=== PATIENT | female | born 1950 | race Caucasian/White ===

== ENCOUNTER 2017-10-02 11:10 | Emergency (ER) | payer MEDICARE, BC ==
--- NOTE | 2017-10-02 11:29 | EDM.PDOC ---
ED HPI GENERAL MEDICAL PROBLEM - General Chief Complaint: ENT Problem Stated Complaint: RIGHT EARACHE Time Seen by Provider: 10/02/17 11:24 Source of Information: Reports: Patient History Limitations: Reports: No Limitations - History of Present Illness INITIAL COMMENTS - FREE TEXT/NARRATIVE: HISTORY AND PHYSICAL: History of present illness: Sapphire is a 67-year-old female here for right ear plugged x 6 days. She states she got a chunk of wax out and then she went to the clinic in [place] and ear was flushed. She states that after this became more plugged. She was told to use [id number] Debrox this has not helped. She states she has about a quarter of her hearing in that ear now, denies any pain. She denies any fevers or chills. She states she is currently being treated for a sinus infection with clarithromycin. Review of systems: As per history of present illness and below otherwise all systems reviewed and negative. Past medical history: As per history of present illness and as reviewed below otherwise noncontributory. Surgical history: As per history of present illness and as reviewed below otherwise noncontributory. Social history: No reported history of drug or alcohol abuse. Family history: As per history of present illness and as reviewed below otherwise noncontributory. Physical exam: General: patient sitting comfortably in no acute distress HEENT: Right external ear canal is edematous with some otorrhea noted. TM is intact and without erythema or bulging. Atraumatic, normocephalic, pupils reactive, negative for conjunctival pallor or scleral icterus, mucous membranes moist, throat clear, neck supple Lungs: Clear to auscultation, breath sounds equal bilaterally Heart: S1S2, regular, negative for clicks, rubs, or overt murmurs Neuro: Awake, alert, oriented. Cranial nerves II through XII unremarkable. Cerebellum unremarkable. Motor and sensory unremarkable throughout. Exam nonfocal. Notes: Diagnostics: [] Therapeutics: Ciprodex Otic suspension Impression: Otitis externa Plan: #1 use drops as instructed #2 follow-up with ENT #3 return to ED as needed as discussed Definitive disposition and diagnosis as appropriate pending reevaluation and review of above. - Related Data Allergies Allergy/AdvReac Type Severity Reaction Status Date / Time amoxicillin [From Augmentin] Allergy Nausea and Verified 10/02/17 11:18 Vomiting chicken derived Allergy Hives Verified 06/01/14 08:23 clavulanic acid Allergy Nausea and Verified 10/02/17 11:18 [From Augmentin] Vomiting Home Meds: Home Meds Ciprofloxacin/Dexamethasone [Ciprodex Otic Susp] 1 drop OT BID #1 bottle [Rx] Clarithromycin [Biaxin] 500 mg PO BID 10/02/17 [History] ED ROS ENT - Review of Systems Review Of Systems: ROS reveals no pertinent complaints other than HPI. ED EXAM, ENT - Physical Exam Exam: See Below (See dictation) Course - Vital Signs Last Recorded V/S: Last Vital Signs Temp 36.5 C 10/02/17 11:19 Pulse 104 H 10/02/17 11:19 Resp 18 10/02/17 11:19 BP 141/89 H 10/02/17 11:19 Pulse Ox 94 L 10/02/17 11:19 Departure - Departure Time of Disposition: 11:28 Disposition: Home, Self-Care 01 Condition: Good Clinical Impression: Otitis externa - Discharge Information Prescriptions: Ciprofloxacin/Dexamethasone [Ciprodex Otic Susp] 1 drop OT BID #1 bottle Additional Instructions: The following information is given to patients seen in the emergency department who are being discharged to home. This information is to outline your options for follow-up care. We provide all patients seen in our emergency department with a follow-up referral. The need for follow-up, as well as the timing and circumstances, are variable depending upon the specifics of your emergency department visit. If you don't have a primary care physician on staff, we will provide you with a referral. We always advise you to contact your personal physician following an emergency department visit to inform them of the circumstance of the visit and for follow-up with them and/or the need for any referrals to a consulting specialist. The emergency department will also refer you to a specialist when appropriate. This referral assures that you have the opportunity for follow-up care with a specialist. All of these measure are taken in an effort to provide you with optimal care, which includes your follow-up. Under all circumstances we always encourage you to contact your private physician who remains a resource for coordinating your care. When calling for follow-up care, please make the office aware that this follow-up is from your recent emergency room visit. If for any reason you are refused follow-up, please contact the [facility] Emergency Department at and asked to speak to the emergency department charge nurse. [facility] Special[facility] - ENT [facility] [place] [id number] #1 use drops as instructed #2 follow-up with ENT #3 return to ED as needed as discussed
== END 2017-10-02 11:40 | disposition home or self-care (01) ==
LOC: MW.ED 11:10
DX: H60.91 Unspecified otitis externa, right ear (principal); Z88.1 Allergy status to other antibiotic agents; Z91.018 Allergy to other foods
CPT/HCPCS: 99282

== ENCOUNTER 2019-02-05 12:00 | Emergency (ER) | payer MEDICARE, BC ==
--- NOTE | 2019-02-05 12:26 | EDM.PDOC ---
ED HPI GENERAL MEDICAL PROBLEM - General Chief Complaint: ENT Problem Stated Complaint: sinus infection Time Seen by Provider: 02/05/19 12:23 Source of Information: Reports: Patient - History of Present Illness INITIAL COMMENTS - FREE TEXT/NARRATIVE: HISTORY AND PHYSICAL: History of present illness: []Patient presents with complaint of sinusitis she states she has developed this a couple of times a year over the last 4 years generally in July and January she has [place] sinus pain and pressure on the left no fever nausea vomiting chills sweats Patient has taken some amoxicillin left over from previous she is on of a 75 mg this usually resolves her symptoms Review of systems: As per history of present illness and below otherwise all systems reviewed and negative. Past medical history: As per history of present illness and as reviewed below otherwise noncontributory. Surgical history: As per history of present illness and as reviewed below otherwise noncontributory. Social history: No reported history of drug or alcohol abuse. Family history: As per history of present illness and as reviewed below otherwise noncontributory. Physical exam: HEENT: Atraumatic, normocephalic, pupils reactive, negative for conjunctival pallor or scleral icterus, mucous membranes moist, throat clear, neck supple, nontender, trachea midline. sinus tenderness left greater than right slight effusion in the left ear no otitis appreciated oropharynx is clear Lungs: Clear to auscultation, breath sounds equal bilaterally, chest nontender. Heart: S1S2, regular, negative for clicks, rubs, or JVD. Abdomen: Soft, nondistended, nontender. Negative for masses or hepatosplenomegaly. Negative for costovertebral tenderness. Pelvis: Stable nontender. Genitourinary: Deferred. Rectal: Deferred. Extremities: Atraumatic, negative for cords or calf pain. Neurovascular unremarkable. Neuro: Awake, alert, oriented. Cranial nerves II through XII unremarkable. Cerebellum unremarkable. Motor and sensory unremarkable throughout. Exam nonfocal. Diagnostics: [] [employer]: [] oxacillin Impression: [] sinusitis Definitive disposition and diagnosis as appropriate pending reevaluation and review of above. right facial Pain Score (Numeric/FACES): 8 - Related Data Allergies Allergy/AdvReac Type Severity Reaction Status Date / Time amoxicillin [From Augmentin] Allergy Nausea and Verified 02/05/19 12:13 Vomiting chicken derived Allergy Hives Verified 02/05/19 12:13 clavulanic acid Allergy Nausea and Verified 02/05/19 12:13 [From Augmentin] Vomiting Home Meds: Home Meds . 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) History: Reports: Other (See Below) Other Oncologic History: CLL - Infectious Disease History Infectious Disease History: Reports: Shingles - Past Surgical History GI Surgical History: Reports: Appendectomy, Cholecystectomy, EGD Female Surgical History: Reports: Section Social & Family History - Family History Family Medical History: Noncontributory - Tobacco Use Smoking Status *Q: Current Every Day Smoker Years of Tobacco use: 45 Packs/Tins Daily: 0.5 - Caffeine Use Caffeine Use: Reports: Coffee - Recreational Drug Use Recreational Drug Use: No ED ROS GENERAL - Review of Systems Review Of Systems: See Below ED EXAM, GENERAL - Physical Exam Exam: See Below Course - Vital Signs Last Recorded V/S: Last Vital Signs Temp 97.3 F 02/05/19 12:10 Pulse 93 02/05/19 12:10 Resp 18 02/05/19 12:10 BP 154/74 H 02/05/19 12:10 Pulse Ox 95 02/05/19 12:10 Departure - Departure Time of Disposition: 12:25 Disposition: Home, Self-Care 01 Condition: Good Clinical Impression: Sinusitis - Discharge Information Referrals: PCP,None [Primary Care Provider] - Additional Instructions: The following information is given to patients seen in the emergency department who are being discharged to home. This information is to outline your options for follow-up care. We provide all patients seen in our emergency department with a follow-up referral. The need for follow-up, as well as the timing and circumstances, are variable depending upon the specifics of your emergency department visit. If you don't have a primary care physician on staff, we will provide you with a referral. We always advise you to contact your personal physician following an emergency department visit to inform them of the circumstance of the visit and for follow-up with them and/or the need for any referrals to a consulting specialist. The emergency department will also refer you to a specialist when appropriate. This referral assures that you have the opportunity for follow-up care with a specialist. All of these measure are taken in an effort to provide you with optimal care, which includes your follow-up. Under all circumstances we always encourage you to contact your private physician who remains a resource for coordinating your care. When calling for follow-up care, please make the office aware that this follow-up is from your recent emergency room visit. If for any reason you are refused follow-up, please contact the [facility] emergency department at and asked to speak to the emergency department charge nurse.
== END 2019-02-05 12:36 | disposition home or self-care (01) ==
LOC: MW.ED 12:00
DX: J32.9 Chronic sinusitis, unspecified (principal); F17.210 Nicotine dependence, cigarettes, uncomplicated; Z88.0 Allergy status to penicillin; Z88.1 Allergy status to other antibiotic agents; Z91.018 Allergy to other foods
CPT/HCPCS: 99283

== ENCOUNTER 2020-09-04 08:01 | Emergency (ER) | payer MEDICARE, BC ==
--- NOTE | 2020-09-04 08:33 | EDM.PDOC ---
ED HPI GENERAL MEDICAL PROBLEM - General Chief Complaint: General Stated Complaint: RIGHT SIDE PAIN Time Seen by Provider: 09/04/20 08:23 Source of Information: Reports: Patient History Limitations: Reports: No Limitations - History of Present Illness INITIAL COMMENTS - FREE TEXT/NARRATIVE: Patient is a 70-year-old female with history of CLL who presents today for right-sided rib pain. Patient states that she was gardening yesterday when she bent over she felt a pop in her right side and since then has had pain with twisting turning and taking a deep breath. Patient denies any shortness of breath chest pain nausea vomiting licha pain decreased p.o. intake or other symptoms. Patient is a pain is an achy feeling, she taken Tylenol Motrin with the pain better. Patient denies any additional complaints. right ribs Pain Score (Numeric/FACES): 8 - Related Data Allergies Allergy/AdvReac Type Severity Reaction Status Date / Time chicken derived Allergy Hives Verified 09/04/20 08:17 clavulanic acid Allergy Nausea and Verified 09/04/20 08:17 [From Augmentin] Vomiting Home Meds: Home Meds . 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 (Cancer) History: Reports: Other (See Below) Other Oncologic History: CLL - Infectious Disease History Infectious Disease History: Reports: Shingles - Past Surgical History Other Respiratory Surgeries/Procedures: Emphysema GI Surgical History: Reports: Appendectomy, Cholecystectomy, EGD Female Surgical History: Reports: Section Social & Family History - Family History Family Medical History: No Pertinent Family History - Tobacco Use Packs/Tins Daily: 0.7 - Caffeine Use Caffeine Use: Reports: Coffee - Recreational Drug Use Recreational Drug Use: No ED ROS GENERAL - Review of Systems Review Of Systems: See Below Constitutional: Reports: No Symptoms HEENT: Reports: No Symptoms Respiratory: Reports: No Symptoms Cardiovascular: Reports: No Symptoms Endocrine: Reports: No Symptoms GI/Abdominal: Reports: No Symptoms : Reports: No Symptoms Musculoskeletal: Reports: No Symptoms Skin: Reports: No Symptoms Neurological: Reports: No Symptoms Psychiatric: Reports: No Symptoms Hematologic/Lymphatic: Reports: No Symptoms Immunologic: Reports: No Symptoms ED EXAM, GENERAL - Physical Exam Exam: See Below Exam Limited By: No Limitations General Appearance: Alert, WD/WN, No Apparent Distress Head: Atraumatic, Normocephalic Respiratory/Chest: No Respiratory Distress, Lungs Clear, Normal Breath Sounds. No: Chest Non-Tender Cardiovascular: Normal Peripheral Pulses, Regular Rate, Rhythm, No Edema GI/Abdominal: Normal Bowel Sounds, Soft, Non-Tender Back Exam: Normal Inspection, Full Range of Motion, NT Extremities: Normal Inspection, Normal Range of Motion Neurological: Alert, Oriented, CN II-XII Intact, Normal Cognition, Normal Gait Psychiatric: Normal Affect, Normal Mood Skin Exam: No Rash Course - Vital Signs Last Recorded V/S: Last Vital Signs Temp 96.6 F L 09/04/20 08:14 Pulse 93 09/04/20 08:14 Resp 16 09/04/20 08:14 BP 182/94 H 09/04/20 08:14 Pulse Ox 95 09/04/20 08:14 Departure - Departure Time of Disposition: 09:22 Disposition: Home, Self-Care 01 Condition: Good Clinical Impression: Right flank pain - Discharge Information *PRESCRIPTION DRUG MONITORING PROGRAM REVIEWED*: Not Applicable *COPY OF PRESCRIPTION DRUG MONITORING REPORT IN PATIENT VAIBHAV: Not Applicable Instructions: Flank Pain, Adult, [id number] Referrals: PCP,None [Primary Care Provider] - Forms: ED Department Discharge Additional Instructions: The following information is given to patients seen in the emergency department who are being discharged to home. This information is to outline your options for follow-up care. We provide all patients seen in our emergency department w ith a follow-up referral. The need for follow-up, as well as the timing and circumstances, are variable depending upon the specifics of your emergency department visit. If you don't have a primary care physician on staff, we will provide you with a referral. We always advise you to contact your personal physician following an emergency department visit to inform them of the circumstance of the visit and for follow-up with them and/or the need for any referrals to a consulting specialist. The emergency department will also refer you to a specialist when appropriate. This referral assures that you have the opportunity for follow-up care with a specialist. All of these measure are taken in an effort to provide you with optimal care, which includes your follow-up. Under all circumstances we always encourage you to contact your private physician who remains a resource for coordinating your care. When calling for follow-up care, please make the office aware that this follow-up is from your recent emergency room visit. If for any reason you are refused follow-up, please contact the [facility] Emergency Department at and asked to speak to the emergency department charge nurse. Please follow up with your primary care physician. If you do not have a primary care physician, see below: [facility] [address] [place] [id number] [facility] [address] [place] [address] You were seen today for pain to your right side. This pain happened after your gardening. The x-ray did not show any displaced fractures. This pain may be muscle skeletal. Do not have any symptoms of any nausea vomiting or chest pain but if you develop any blood in urine pain with eating or other symptoms please return to the ED. We cannot do any lab work as you stated you recently had labs done for her CLL and scheduled see your doctor already. However if something happens in the meantime please return to ED immediately. Sepsis Event Note (ED) - Evaluation Sepsis Screening Result: No Definite Risk - Focused Exam Vital Signs: Vital Signs Temp Pulse Resp BP Pulse Ox 09/04/20 08:14 96.6 F L 93 16 182/94 H 95 - Assessment/Plan Plan: Patient is a 70-year-old female who presents today for right-sided rib pain. Pain is reproducible on exam since of all the rib. Patient has no abdominal tenderness no cardiac symptoms. Will obtain x-ray and provide pain control and reassess patient.
--- NOTE | 2020-09-04 09:14 | CR ---
INDICATION: Right-sided lower rib pain TECHNIQUE: Single view chest with AP and Oblique views right chest chest COMPARISON: None available. FINDINGS: There is no dense consolidation, effusion, or pneumothorax. The cardiomediastinal silhouette is within normal limits. There is no evidence of displaced rib fracture. The bony thorax is otherwise intact. IMPRESSION: No acute cardiopulmonary abnormality. No displaced rib fracture is appreciated. If pain and clinical symptoms persist, subtle, non-displaced injuries are not entirely excluded. Dictated by Doc Mcleod MD @ 09/04/2020 9:13:[address] Doc Mcleod @ Sep 04 2020 9:13AM
== END 2020-09-04 09:32 | disposition home or self-care (01) ==
LOC: MW.ED 08:01
DX: R10.9 Unspecified abdominal pain (principal); R07.81 Pleurodynia; Z72.0 Tobacco use; Z88.1 Allergy status to other antibiotic agents; Z91.018 Allergy to other foods
CPT/HCPCS: 71101-26-RT; 71101-RT; 99283-25

== ENCOUNTER 2020-09-08 09:26 | Emergency (ER) | payer MEDICARE, BC ==
--- NOTE | 2020-09-08 09:55 | EDM.PDOC ---
ED HPI GENERAL MEDICAL PROBLEM - General Chief Complaint: General Stated Complaint: PAIN IN LFT SIDE COUGHING UP BLOOD Time Seen by Provider: 09/08/20 09:51 Source of Information: Reports: Patient History Limitations: Reports: No Limitations - History of Present Illness INITIAL COMMENTS - FREE TEXT/NARRATIVE: Patient is a 70-year-old female presents today for right-sided rib pain states now is radiated to epigastric area into her right hip as well. Patient denies any injuries or falls recently. Patient seen a few days ago for similar pains after she twisted it while in the garden. Patient denies any nausea vomiting fever chills shortness of breath denies any chest pain. Patient took some narcotics that was prescribed a few days ago but states this made her constipat ed so she stopped taking them. Patient is a pain is been constant again is made worse with movement. 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: Oncologic (Cancer) History: Reports: Other (See Below) Other Oncologic History: CLL - Infectious Disease History Infectious Disease History: Reports: Chicken Pox, Measles, Mumps, Shingles - Past Surgical History Other Respiratory Surgeries/Procedures: Emphysema GI Surgical History: Reports: Appendectomy, Cholecystectomy, EGD Female Surgical History: Reports: Section Social & Family History - Family History Family Medical History: No Pertinent Family History - Tobacco Use Tobacco Use Status *Q: Never Tobacco User - Caffeine Use Caffeine Use: Reports: Coffee - Recreational Drug Use Recreational Drug Use: No ED ROS GENERAL - Review of Systems Review Of Systems: See Below Constitutional: Reports: No Symptoms HEENT: Reports: No Symptoms Respiratory: Reports: No Symptoms Cardiovascular: Reports: No Symptoms Endocrine: Reports: No Symptoms GI/Abdominal: Reports: Abdominal Pain : Reports: No Symptoms Musculoskeletal: Reports: No Symptoms Skin: Reports: No Symptoms Neurological: Reports: No Symptoms Psychiatric: Reports: No Symptoms Hematologic/Lymphatic: Reports: No Symptoms Immunologic: Reports: No Symptoms ED EXAM, GENERAL - Physical Exam Exam: See Below Exam Limited By: No Limitations General Appearance: Alert, WD/WN, No Apparent Distress Head: Atraumatic, Normocephalic Respiratory/Chest: No Respiratory Distress, Lungs Clear, Normal Breath Sounds Cardiovascular: Normal Peripheral Pulses, Regular Rate, Rhythm GI/Abdominal: Normal Bowel Sounds, Soft, Non-Tender Extremities: Normal Inspection, Normal Range of Motion Neurological: Alert, Oriented Course - Vital Signs Last Recorded V/S: Last Vital Signs Temp 98.0 F 09/08/20 09:41 Pulse 97 09/08/20 09:41 Resp 17 09/08/20 09:41 BP 150/85 H 09/08/20 09:41 Pulse Ox 97 09/08/20 09:41 - Orders/Labs/Meds Labs: Laboratory Tests 09/08/20 09/08/20 09/08/20 Range/Units 09:51 09:51 09:56 WBC 124.42 H (4.0-11.0) K/uL RBC 4.08 L (4.30-5.90) M/uL Hgb 12.8 (12.0-16.0) g/dL Hct 40.5 (36.0-46.0) % MCV 99.3 H (80.0-98.0) fL MCH 31.4 (27.0-32.0) pg MCHC 31.6 (31.0-37.0) g/dL RDW Std Deviation 48.2 (28.0-62.0) fl RDW Coeff of Tessa 14 (11.0-15.0) % Plt Count 111 L (150-400) K/uL MPV 9.30 (7.40-12.00) fL Neut % (Auto) 3.2 L (48.0-80.0) % Lymph % (Auto) 94.4 H (16.0-40.0) % [place] % (Auto) 2.3 (0.0-15.0) % Eos % (Auto) 0.1 (0.0-7.0) % Baso % (Auto) 0.0 (0.0-1.5) % Neut # (Auto) 4.0 (1.4-5.7) K/uL Lymph # (Auto) 117.4 H (0.6-2.4) K/uL [place] # (Auto) 2.9 H (0.0-0.8) K/uL Eos # (Auto) 0.1 (0.0-0.7) K/uL Baso # (Auto) 0.0 (0.0-0.1) K/uL Sodium 141 (136-145) mmol/L Potassium 3.9 (3.5-5.1) mmol/L Chloride 106 (98-107) mmol/L Carbon Dioxide 25.4 (21.0-32.0) mmol/L BUN 10 (7.0-18.0) mg/dL Creatinine 0.9 (0.6-1.0) mg/dL Est Cr Clr Drug Dosing 44.52 mL/min Estimated GFR (MDRD) > 60.0 ml/min Glucose 97 (74-106) mg/dL Calcium 8.9 (8.5-10.1) mg/dL Magnesium 2.0 (1.8-2.4) mg/dL Total Bilirubin 0.6 (0.2-1.0) mg/dL AST 25 (15-37) IU/L ALT 7 L (14-63) IU/L Alkaline Phosphatase 62 (46-116) U/L Creatine Kinase 66 (26-308) U/L Troponin I < 0.050 (0.000-0.056) ng/mL Total Protein 7.0 (6.4-8.2) g/dL Albumin 4.3 (3.4-5.0) g/dL Globulin 2.7 (2.6-4.0) g/dL Albumin/Globulin Ratio 1.6 (0.9-1.6) Lipase 96 (73-393) U/L Urine Color YELLOW Urine Appearance CLEAR Urine pH 7.0 (5.0-8.0) Ur Specific [place] 1.015 (1.001-1.035) Urine Protein NEGATIVE (NEGATIVE) mg/dL Urine Glucose (UA) NEGATIVE (NEGATIVE) mg/dL Urine Ketones NEGATIVE (NEGATIVE) mg/dL Urine Occult Blood NEGATIVE (NEGATIVE) Urine Nitrite NEGATIVE (NEGATIVE) Urine Bilirubin NEGATIVE (NEGATIVE) Urine Urobilinogen 0.2 (<2.0) EU/dL Ur Leukocyte Esterase NEGATIVE (NEGATIVE) Meds: Medications Discontinued Medications Generic Name Dose Route Start Last Admin Trade Name Lamar PRN Reason Stop Dose Admin Iopamidol 100 ml 09/08/20 11:00 09/08/20 11:01 Iopamidol 755 Mg/Ml 500 Ml Multipack Bottle IVPUSH 09/08/20 11:01 100 ml ONETIME ONE Administration - Re-Assessments/Exams Free Text/Narrative Re-Assessment/Exam: 09/08/20 11:[address] reviewed which is given to patient about the poor fusion her right side could cause patient pain she understands that she has appointment with her PMD. Patient was drinking well tolerating p.o. patient home. Departure - Departure Time of Disposition: 11:44 Disposition: Home, Self-Care 01 Condition: Good Clinical Impression: Abdominal pain - Discharge Information *PRESCRIPTION DRUG MONITORING PROGRAM REVIEWED*: Not Applicable *COPY OF PRESCRIPTION DRUG MONITORING REPORT IN PATIENT VAIBHAV: Not Applicable Instructions: Abdominal Pain, Adult, [id number] Referrals: Kishan Cuevas MD [Primary Care Provider] - Forms: ED Department Discharge Additional Instructions: The following information is given to patients seen in the emergency department who are being discharged to home. This information is to outline your options for follow-up care. We provide all patients seen in our emergency department with a follow-up referral. The need for follow-up, as well as the timing and circumstances, are variable depending upon the specifics of your emergency department visit. If you don't have a primary care physician on staff, we will provide you with a referral. We always advise you to contact your personal physician following an emergency department visit to inform them of the circumstance of the visit and for follow-up with them and/or the need for any referrals to a consulting specialist. The emergency department will also refer you to a specialist when appropriate. This referral assures that you have the opportunity for follow-up care with a specialist. All of these measure are taken in an effort to provide you with optimal care, which includes your follow-up. Under all circumstances we always encourage you to contact your private physician who remains a resource for coordinating your care. When calling for follow-up care, please make the office aware that this follow-up is from your recent emergency room visit. If for any reason you are refused follow-up, please contact the [facility] Emergency Department at and asked to speak to the emergency department charge nurse. Please follow up with your primary care physician. If you do not have a primary care physician, see below: [facility] [address] [place] [id number] My [facility] [address] [place] [address] You were seen today for pain in your right flank radiating to your left side and also to your hip we did imaging of your abdomen with a CAT scan did not show any concerning findings for this pain. We also did a troponin to make sure your heart was okay as well everything seems to be within his normal limits we recommend to continue to take the pain meds you were sent home with you have any other concerning signs or symptoms please return to the ED. also follow your PMD and she had a schedule appointment already. Sepsis Event Note (ED) - Evaluation Sepsis Screening Result: No Definite Risk - Focused Exam Vital Signs: Vital Signs Temp Pulse Resp BP Pulse Ox 09/08/20 09:41 98.0 F 97 17 150/85 H 97 - Assessment/Plan Plan: Patient is a 70-year-old female presents today for right-sided rib pain is not improved as last time she was here. Patient has no symptoms of nausea vomiting and no shortness of breath denies any chest pain. Will obtain labs UA and reassess patient.
[2020-09-08 10:25] LABS: BLOOD UREA NITROGEN,BUN 10 mg/dL (7.0-18.0); CARBON DIOXIDE,CO2 25.4 mmol/L (21.0-32.0); CHLORIDE,CL 106 mmol/L (98-107); GLUCOSE RANDOM 97 mg/dL (74-106); LIPASE 96 U/L (73-393); POTASSIUM,K 3.9 mmol/L (3.5-5.1); SODIUM,NA 141 mmol/L (136-145)
[2020-09-08] MEDS ORDERED: Iopamidol 755 MG/ML 500 ML Multipack Bottle IVPUSH ONE (11:00)
--- NOTE | 2020-09-08 11:27 | CT ---
INDICATION: Abdominal pelvic pain, left flank pain. TECHNIQUE: CT abdomen and pelvis acquired with IV contrast. COMPARISON: 03/27/2020 FINDINGS: Mild patchy infiltrate/atelectasis is present within the lingular segment of the left lung. A small left-sided pleural effusion is present with no right-sided pleural effusion. The liver is normal in appearance. The gallbladder is surgically absent. The spleen is prominent in size measuring up to 13 centimeters. The adrenal glands, kidneys, uterus and decompressed urinary bladder appear normal. Atherosclerotic calcifications are re-identified in the abdominal aorta with no aneurysmal dilatation evident. No lymphadenopathy or ascites is seen. No gastric or acute bowel abnormalities are seen. Numerous pelvic veins are identified and can be seen with pelvic congestion syndrome. Moderate to advanced spondylosis changes present in the lumbar spine with mild grade 1 retrolisthesis of L1 on L2. No acute osseous abnormality is seen. IMPRESSION: 1. Mild lingular segment left lower lung infiltrate/atelectasis with a new small free layering left-sided pleural effusion. 2. Other findings are unchanged as detailed above. Please note that all CT scans at this facility use dose modulation, iterative reconstruction, and/or weight-based dosing when appropriate to reduce radiation dose to as low as reasonably achievable. Dictated by Rory Raman MD @ 09/08/2020 11:25:[address] Rory Raman @ Sep 08 2020 11:25AM
== END 2020-09-08 12:00 | disposition home or self-care (01) ==
LOC: MW.ED 09:26
DX: R10.13 Epigastric pain (principal); Z91.018 Allergy to other foods; Z88.1 Allergy status to other antibiotic agents
CPT/HCPCS: 36415; 74177; 80053; 81003; 82550; 83690; 83735; 84484; 85025; 99284; Q9967; 99283

== ENCOUNTER 2021-01-03 09:13 | Day surgery (SDC) | payer MEDICARE, BC ==
[~2021-01-03 09:13] MED LIST: Lactated Ringers 1,000 ML IV SCH; Sodium Chloride 0.9% 10 ML SDV IV PRN; Sodium Chloride 0.9% 10 ML Syringe FLUSH PRN; Sodium Chloride 0.9% 2.5 ML Syringe FLUSH PRN
--- NOTE | 2021-01-03 09:35 | PCM.PREANE ---
Preanesthetic Assessment - Anesthesia/Transfusion/Family Hx Anesthesia History: Prior Anesthesia Without Reaction Transfusion History: No Prior Transfusion(s) - Review of Systems General: No Symptoms Pulmonary: No Symptoms Cardiovascular: No Symptoms Gastrointestinal: No Symptoms Neurological: No Symptoms Other: Reports: None - Physical Assessment NPO Status Date: 01/03/21 NPO Status Time: 00:00 Height: 5 ft Weight: 115 lb ASA Class: 3 Mental Status: Alert & Oriented x3 Airway Class: Mallampati = 2 Dentition: Reports: Normal Dentition Thyro-Mental Finger Breadths: 3 Mouth Opening Finger Breadths: 3 ROM/Head Extension: Full Lungs: Clear to Auscultation, Normal Respiratory Effort Cardiovascular: Regular Rate, Regular Rhythm - Allergies Allergies/Adverse Reactions: Allergies Allergy/AdvReac Type Severity Reaction Status Date / Time chicken derived Allergy Hives Verified 12/28/20 08:18 clavulanic acid Allergy Nausea and Verified 12/28/20 08:18 [From Augmentin] Vomiting codeine Allergy Hallucinati Verified 12/28/20 08:18 ons - Acknowledgements Anesthesia Type Planned: General Anesthesia Pt an Appropriate Candidate for the Planned Anesthesia: Yes Alternatives and Risks of Anesthesia Discussed w Pt/Guardian: Yes Pt/Guardian Understands and Agrees with Anesthesia Plan: Yes PreAnesthesia Questionnaire - Past Health History Medical/Surgical History: Denies Medical/Surgical History HEENT History: Reports: Other (See Below) Other HEENT History: wears glasses, has dental implants Cardiovascular History: Reports: None Respiratory History: Reports: Other (See Below) Other Respiratory History: hx of smoking x 50 years, currently smokes 1 PPD Gastrointestinal History: Reports: Colon Polyp, Irritable Bowel Syndrome, Other (See Below) Other Gastrointestinal History: occasional heartburn, c/o rectal discomfort Genitourinary History: Reports: None 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: Musculoskeletal History: Reports: Arthritis, Back Pain, Chronic Neurological History: Reports: None Psychiatric History: Reports: Anxiety Endocrine/Metabolic History: Reports: None Hematologic History: Reports: Other (See Below) Other Hematologic History: CLL Immunologic History: Reports: None Oncologic (Cancer) History: Reports: Other (See Below) Other Oncologic History: CLL Dermatologic History: Reports: None - Infectious Disease History Infectious Disease History: Reports: Chicken Pox, Measles, Mumps, Shingles - Past Surgical History Head Surgeries/Procedures: Reports: None HEENT Surgical History: Reports: None Cardiovascular Surgical History: Reports: None Respiratory Surgical History: Reports: None GI Surgical History: Reports: Appendectomy, Cholecystectomy, Colonoscopy, EGD Female Surgical History: Reports: Section Endocrine Surgical History: Reports: None Neurological Surgical History: Reports: None Musculoskeletal Surgical History: Reports: None Oncologic Surgical History: Reports: None Dermatological Surgical History: Reports: None - SUBSTANCE USE Tobacco Use Status *Q: Current Every Day Tobacco User Tobacco Use Within Last Twelve Months: Cigarettes Days Per Week of Alcohol Use: 7 Number of Drinks Per Day: 1 Total Drinks Per Week: 7 - HOME MEDS Home Medications: Home Meds Hydrocortisone Acetate [Anusol-Hc] 1 supp RECTAL BEDTIME 12/28/20 [History] LORazepam [Ativan] 0.5 - 1 tab PO ASDIRECTED PRN 12/28/20 [History] diphenhydrAMINE [Benadryl] 25 mg PO BEDTIME 12/28/20 [History] - CURRENT (IN HOUSE) MEDS Current Meds: Current Medications Lactated Ringer's (Ringers, Lactated) 1,000 mls @ 125 mls/hr IV ASDIRECTED MADAN Sodium Chloride (Sodium Chloride 0.9% 10 Ml Syringe) 10 ml FLUSH ASDIRECTED PRN PRN Reason: Keep Vein Open Sodium Chloride (Sodium Chloride 0.9% 2.5 Ml Syringe) 2.5 ml FLUSH ASDIRECTED PRN PRN Reason: Keep Vein Open Sodium Chloride (Sodium Chloride 0.9% 10 Ml Syringe) 10 ml FLUSH ASDIRECTED PRN PRN Reason: Keep Vein Open Sodium Chloride (Sodium Chloride 0.9% 2.5 Ml Syringe) 2.5 ml FLUSH ASDIRECTED PRN PRN Reason: Keep Vein Open Sodium Chloride (Sodium Chloride 0.9% 10 Ml Sdv) 10 ml IV ASDIRECTED PRN PRN Reason: IV Use
[2021-01-03] MEDS ORDERED: Propofol 200 MG/20 ML SDV ONE ×2 (11:30→11:56)
[2021-01-03] MEDS ORDERED: fentaNYL 100 MCG/2 ML SDV ONE (11:39)
--- NOTE | 2021-01-03 12:17 | PCM48HPAN ---
Post Anesthesia Note - EVALUATION WITHIN 48HRS OF ANESTHETIC Patient Participated in Evaluation: Yes Respiratory Function Stable: Yes Airway Patent: Yes Cardiovascular Function Stable: Yes Hydration Status Stable: Yes Pain Control Satisfactory: Yes Nausea and Vomiting Control Satisfactory: Yes Mental Status Recovered: Yes Vital Signs: Last Vital Signs Temp 36.2 C 01/03/21 12:12 Pulse 77 01/03/21 12:12 Resp 14 01/03/21 12:12 BP 90/45 L 01/03/21 12:12 Pulse Ox 99 01/03/21 12:12
--- NOTE | 2021-01-03 12:17 | PCM.POSTAN ---
POST ANESTHESIA ASSESSMENT - MENTAL STATUS Mental Status: Alert, Oriented - VITAL SIGNS Vital Signs: Last Vital Signs Temp 36.2 C 01/03/21 12:12 Pulse 77 01/03/21 12:12 Resp 14 01/03/21 12:12 BP 90/45 L 01/03/21 12:12 Pulse Ox 99 01/03/21 12:12 - RESPIRATORY Respiratory Status: Respiratory Rate WNL, Airway Patent, O2 Saturation Stable - CARDIOVASCULAR CV Status: Pulse Rate WNL, Blood Pressure Stable - GASTROINTESTINAL GI Status: No Symptoms - POST OP HYDRATION Hydration Status: Adequate & Stable
--- NOTE | 2021-01-03 12:18 | PCM.OPNOTE ---
- General Post-Op/Procedure Note Date of Surgery/Procedure: 01/03/21 Operative Procedure(s): Diagnostic colonoscopy Findings: diverticulosis, sigmoid colon polyp Pre Op Diagnosis: Rectal pain Post-Op Diagnosis: Sigmoid colon polyp, diverticulosis [place]est[place] [facility] [place]geon: Tianna Gamboa Condition: Good
--- NOTE | 2021-01-03 14:23 | OR ---
SURGEON: TIANNA GAMBOA MD DATE OF PROCEDURE: 01/03/2021 PREOPERATIVE DIAGNOSIS: Rectal pain. POSTOPERATIVE DIAGNOSES: 1. Sigmoid colon polyp. 2. Diverticulosis. PROCEDURE PERFORMED: Diagnostic colonoscopy with polypectomy. PRIMARY SURGEON: Tianna Gamboa MD ANESTHESIA: MAC. INSTRUMENT USED: Olympus colonoscope. EXTENT OF EXAM: To the cecum. PREPARATION: Good. LIMITATIONS: None. INDICATIONS FOR EXAMINATION: The patient is a 70-year-old female who presented to my clinic with rectal pain. The decision was made to proceed with diagnostic colonoscopy. I explained the procedure, expected perioperative course, and the risks. She verbalized understanding and wishes to proceed. PROCEDURE IN DETAIL: The patient was brought in to the endoscopy suite and placed in a left lateral decubitus position. A time-out was completed verifying the patient's name, age, date of , allergies, and procedure to be performed. Monitored anesthesia care was induced and continuous oxygen was provided via nasal cannula throughout the procedure. After adequate sedation was achieved, a digital rectal exam was performed. This exam was within normal limits. A well-lubricated colonoscope was inserted into the rectum and advanced under direct visualization to the level of the cecum. Cecum was then identified by both visual and anatomic landmarks. A photograph was taken of the cecal cap, however, I was unable to retroflex the scope within the cecum due to looping of the scope more proximally. The scope was then fully withdrawn while examining the color, texture, anatomy, and integrity of the mucosa from the cecum to the anal canal. The patient was found to have diverticulosis within the distal sigmoid colon. She also had a small sessile polyp in the distal sigmoid colon. This was removed in piecemeal fashion using a cold biopsy forceps. The scope was then brought into the rectum and retroflexed to allow visualization of the anal canal opening. This appeared normal and a photograph was taken. The scope was then straightened out and fully withdrawn. The cecum to anus time was 10 minutes. The patient tolerated the procedure well and was transferred to the PACU in stable condition. ENDOSCOPIC DIAGNOSES: 1. Sigmoid colon polyp. 2. Diverticulosis. RECOMMENDATION: Follow up in clinic in two weeks. SHINE AZAR /[id number]
== END 2021-01-03 12:50 | disposition home or self-care (01) ==
LOC: MW.SDS 09:13
PROVIDERS: ATTEND Surgery
DX: D12.5 Benign neoplasm of sigmoid colon (principal); K62.89 Other specified diseases of anus and rectum; K57.30 Diverticulosis of large intestine without perforation or abscess without bleeding; K58.9 Irritable bowel syndrome, unspecified; N94.89 Other specified conditions associated with female genital organs and menstrual cycle; Z88.5 Allergy status to narcotic agent; Z88.8 Allergy status to other drugs, medicaments and biological substances; Z90.49 Acquired absence of other specified parts of digestive tract; Z79.899 Other long term (current) drug therapy; F17.210 Nicotine dependence, cigarettes, uncomplicated; Z98.890 Other specified postprocedural states; Z01.812 Encounter for preprocedural laboratory examination; Z20.822 Contact with and (suspected) exposure to COVID-19
CPT/HCPCS: 45380; 88305; J2704; J3010; J7120; U0002; 00811

== ENCOUNTER 2021-09-12 12:04 | Emergency (ER) | payer MEDICARE, BC ==
[2021-09-12] MEDS ORDERED: Sodium Chloride 0.9% 2.5 ML Syringe FLUSH PRN (12:46)
[2021-09-12] MEDS ORDERED: Sodium Chloride 0.9% 10 ML Syringe FLUSH PRN (12:46)
[2021-09-12] MEDS ORDERED: Ondansetron 4 MG/2 ML SDV IVPUSH ONE (13:02)
[2021-09-12] MEDS ORDERED: Sodium Chloride 0.9% 1,000 ML IV ONE (13:02)
[2021-09-12 13:26] LABS: CARBON DIOXIDE,CO2 25.8 mmol/L (21.0-32.0); POTASSIUM,K 4.2 mmol/L (3.5-5.1)
[2021-09-12] MEDS ORDERED: metroNIDAZOLE 250 MG Tab PO ONE (14:39)
[2021-09-12] MEDS ORDERED: Ciprofloxacin 500 MG Tab PO ONE (14:39)
[2021-09-12] MEDS ORDERED: Iopamidol 755 MG/ML 500 ML Multipack Bottle IVPUSH STA (16:51)
== END 2021-09-12 14:55 | disposition home or self-care (01) ==
LOC: MW.ED 12:04
DX: K57.32 Diverticulitis of large intestine without perforation or abscess without bleeding (principal); Z88.5 Allergy status to narcotic agent; Z88.0 Allergy status to penicillin; Z91.018 Allergy to other foods; Z87.891 Personal history of nicotine dependence
CPT/HCPCS: 36415; 74177; 80053; 81001; 83605; 85025; 96374; 99284; A9270; J2405; J3490; J7030; Q9967

== ENCOUNTER 2021-09-20 12:33 | Emergency (ER) | payer BC ==
[2021-09-20] MEDS ORDERED: Sodium Chloride 0.9% 10 ML Syringe FLUSH PRN (12:49)
[2021-09-20] MEDS ORDERED: Sodium Chloride 0.9% 2.5 ML Syringe FLUSH PRN (12:49)
[2021-09-20 13:59] LABS: CARBON DIOXIDE,CO2 27.1 mmol/L (21.0-32.0); POTASSIUM,K 4.1 mmol/L (3.5-5.1)
[2021-09-20] MEDS ORDERED: Iopamidol 755 MG/ML 500 ML Multipack Bottle IVPUSH STA (14:39)
[2021-09-20] MEDS ORDERED: LORazepam 2 MG/ML Syringe IVPUSH ONE (14:54)
[2021-09-20] MEDS ORDERED: LORazepam 2 MG/ML SDV IVPUSH ONE (15:05)
[2021-09-20] MEDS ORDERED: Ertapenem 1 GM in Sodium Chloride 0.9% 50 ML IV ONE (16:00)
== END 2021-09-20 17:35 | disposition home or self-care (01) ==
LOC: MW.ED 12:33
DX: K57.32 Diverticulitis of large intestine without perforation or abscess without bleeding (principal); F17.210 Nicotine dependence, cigarettes, uncomplicated; F41.9 Anxiety disorder, unspecified; Z20.822 Contact with and (suspected) exposure to COVID-19; Z79.899 Other long term (current) drug therapy; Z91.018 Allergy to other foods; Z88.5 Allergy status to narcotic agent; Z88.1 Allergy status to other antibiotic agents
CPT/HCPCS: 36415; 74177; 80053; 83605; 85025; 87635; 96365; 96375; 99284; J1335; J2060; J3490; Q9967; U0002

== ENCOUNTER 2021-10-02 13:21 | Emergency (ER) | payer BC ==
[2021-10-02] MEDS: Morphine 4 MG/ML VIAL IVPUSH ONE (13:53)
[2021-10-02 14:19] LABS: CARBON DIOXIDE,CO2 24.3 mmol/L (21.0-32.0); POTASSIUM,K 4.3 mmol/L (3.5-5.1)
[2021-10-02] MEDS: Iopamidol 755 MG/ML 500 ML Multipack Bottle IVPUSH STA (17:41)
[2021-10-02] MEDS: Diatrizoate Meglumine/Diatrizoate Sodium 37% 30 ML Bottle PO ONE (17:54)
[2021-10-02] MEDS: Albuterol 0.083% 2.5 MG/3 ML Neb Soln NEB ONE (19:34)
== END 2021-10-02 19:57 | disposition home or self-care (01) ==
LOC: MW.ED 13:21
DX: R06.02 Shortness of breath (principal); Z88.5 Allergy status to narcotic agent; Z91.018 Allergy to other foods; Z88.0 Allergy status to penicillin; Z20.822 Contact with and (suspected) exposure to COVID-19
CPT/HCPCS: 36415; 71260; 74177; 80053; 81001; 85025; 87635; 96374; 99284; J2270; Q9963; Q9967; U0002

== ENCOUNTER 2021-10-12 18:21 | Emergency (ER) | payer MEDICARE, BC | END 2021-10-12 21:19 | disposition home or self-care (01) | LOC: MW.ED 18:21 | DX: M54.9 Dorsalgia, unspecified (principal); F41.9 Anxiety disorder, unspecified; T40.425A Adverse effect of tramadol, initial encounter; Z91.018 Allergy to other foods; Z88.5 Allergy status to narcotic agent; Z88.0 Allergy status to penicillin | CPT/HCPCS: 99283 ==

== ENCOUNTER 2021-10-30 18:55 | Inpatient (IN) | payer MEDICARE, BC ==
[2021-10-30] MEDS ORDERED: Sodium Chloride 0.9% 2.5 ML Syringe FLUSH PRN (19:18)
[2021-10-30] MEDS ORDERED: Sodium Chloride 0.9% 10 ML Syringe FLUSH PRN (19:18)
[2021-10-30] MEDS ORDERED: Lactated Ringers 1,000 ML IV ONE (19:19)
[2021-10-30] MEDS ORDERED: Lactated Ringers 500 ML IV ONE (19:20)
[2021-10-30] MEDS ORDERED: Acetaminophen 500 MG Tab PO ONE (19:26)
[2021-10-30] MEDS ORDERED: Albuterol 0.083% 2.5 MG/3 ML Neb Soln NEB ONE (19:26)
[2021-10-30] MEDS ORDERED: Cefepime 2 GM in Sodium Chloride 0.9% 50 ML IV ONE (19:26)
[2021-10-30] MEDS ORDERED: Albuterol/Ipratropium 3.0-0.5 MG/3 ML Neb Soln NEB ONE (19:30)
[2021-10-30 19:57] LABS: CARBON DIOXIDE,CO2 23.3 mmol/L (21.0-32.0); POTASSIUM,K 4.3 mmol/L (3.5-5.1)
[2021-10-30] MEDS ORDERED: Morphine 2 MG/ML SYRINGE ONE (23:17)
[2021-10-30] MEDS ORDERED: Morphine 2 MG/ML SYRINGE IVPUSH ONE (23:19)
[2021-10-31] MEDS ORDERED: Iopamidol 755 MG/ML 500 ML Multipack Bottle IVPUSH STA (00:48)
[2021-10-31] MEDS ORDERED: Albuterol/Ipratropium 3.0-0.5 MG/3 ML Neb Soln NEB PRN (04:03)
[2021-10-31] MEDS ORDERED: Acetaminophen 325 MG Tab PO PRN (04:05)
[2021-10-31] MEDS ORDERED: Ondansetron 4 MG/2 ML SDV IVPUSH PRN (04:08)
[2021-10-31] MEDS: Lactated Ringers 1,000 ML IV SCH ×2 (04:25→17:55)
[2021-10-31] MEDS: Piperacillin/Tazobactam 4.5 GM in Sodium Chloride 0.9% 100 ML IV SCH ×4 (04:35→22:23)
[2021-10-31] MEDS: Pantoprazole 40 MG in Sodium Chloride 0.9% 10 ML IVPUSH SCH (04:35)
[2021-10-31] MEDS: Heparin Sodium 5,000 Units/ML Vial SUBCUT SCH ×3 (04:35→20:24)
[2021-10-31 06:31] LABS: CARBON DIOXIDE,CO2 26.9 mmol/L (21.0-32.0)
[2021-10-31] MEDS: LORazepam 0.5 MG Tab PO PRN ×3 (09:15→23:20)
[2021-10-31] MEDS: Acetaminophen/HYDROcodone 325-5 MG Tab PO PRN ×4 (09:20→23:19)
[2021-10-31] MEDS: Benzonatate 100 MG Cap PO PRN (22:23)
[2021-11-01] MEDS: Heparin Sodium 5,000 Units/ML Vial SUBCUT SCH (04:00)
[2021-11-01] MEDS: Piperacillin/Tazobactam 4.5 GM in Sodium Chloride 0.9% 100 ML IV SCH (04:00)
[2021-11-01] MEDS: Pantoprazole 40 MG in Sodium Chloride 0.9% 10 ML IVPUSH SCH (05:17)
[2021-11-01] MEDS: Lactated Ringers 1,000 ML IV SCH (05:27)
[2021-11-01 06:52] LABS: BLOOD UREA NITROGEN,BUN 10 mg/dL (7.0-18.0); CARBON DIOXIDE,CO2 26.9 mmol/L (21.0-32.0); CHLORIDE,CL 106 mmol/L (98-107); GLUCOSE RANDOM 79 mg/dL (74-106); POTASSIUM,K 4.1 mmol/L (3.5-5.1); SODIUM,NA 142 mmol/L (136-145)
[2021-11-01 06:55] LABS: ESTIMATED GFR 79 mL/min (>60)
[2021-11-01] MEDS: Benzonatate 100 MG Cap PO PRN (08:40)
[2021-11-01] MEDS: LORazepam 0.5 MG Tab PO PRN (08:40)
[2021-11-01] MEDS: Acetaminophen/HYDROcodone 325-5 MG Tab PO PRN (08:43)
== END 2021-11-01 13:00 | disposition home or self-care (01) | DRG 871 ==
LOC: MW.ED 18:55 → MW.MS 10-31 01:35
PROVIDERS: ADMIT Student in an Organized Health Care Education/Training Program; ATTEND Student in an Organized Health Care Education/Training Program
DX: A41.9 Sepsis, unspecified organism (principal); J18.9 Pneumonia, unspecified organism; J90 Pleural effusion, not elsewhere classified; Z87.891 Personal history of nicotine dependence; M54.9 Dorsalgia, unspecified; G89.29 Other chronic pain; K58.9 Irritable bowel syndrome, unspecified; Z98.890 Other specified postprocedural states; Z90.49 Acquired absence of other specified parts of digestive tract; M19.90 Unspecified osteoarthritis, unspecified site; Z91.018 Allergy to other foods; F41.9 Anxiety disorder, unspecified; C91.10 Chronic lymphocytic leukemia of B-cell type not having achieved remission; Z79.899 Other long term (current) drug therapy; Z88.1 Allergy status to other antibiotic agents; Z88.5 Allergy status to narcotic agent; Z20.822 Contact with and (suspected) exposure to COVID-19
CPT/HCPCS: 36415; 71045 ×2; 74177; 80053; 81001; 82945; 83605; 83615 ×2; 83986; 84157; 84484; 85025; 87040 ×2; 87070; 87075; 87205; 89050; 93005; 96361; 96365; 96375; 99285; A9270; J0692; J2270; J3370; J3490; J7050; J7120 ×2; Q9967; U0002; 32555; 80202; 83735; 84100; 87015; 88182; 88305; 88341; 88342; 93010; C9113; J1644; J2543; J7620-GY

== ENCOUNTER 2021-12-15 09:59 | Emergency (ER) | payer MEDICARE, BC ==
[2021-12-15 11:03] LABS: CARBON DIOXIDE,CO2 28.4 mmol/L (21.0-32.0); POTASSIUM,K 4.6 mmol/L (3.5-5.1)
== END 2021-12-15 11:39 | disposition home or self-care (01) ==
LOC: MW.ED 09:59
DX: J90 Pleural effusion, not elsewhere classified (principal); Z87.891 Personal history of nicotine dependence; Z91.018 Allergy to other foods; Z88.5 Allergy status to narcotic agent
CPT/HCPCS: 36415; 71045; 71045-26; 80053; 84484; 85025; 93005; 93010; 99283; 99285

== ENCOUNTER 2022-01-10 10:54 | Emergency (ER) | payer MEDICARE, BC ==
[2022-01-10] MEDS ORDERED: Lidocaine 1% with EPINEPHrine 1:100,000 20 ML MDV INJECT ONE (14:24)
[2022-01-10] MEDS ORDERED: Lidocaine 1% with EPINEPHrine 1:100,000 50 ML MDV ONE (14:35)
== END 2022-01-10 16:50 | disposition home or self-care (01) ==
LOC: MW.ED 10:54
DX: C34.92 Malignant neoplasm of unspecified part of left bronchus or lung (principal); J91.0 Malignant pleural effusion; F17.210 Nicotine dependence, cigarettes, uncomplicated; Z91.018 Allergy to other foods
CPT/HCPCS: 32554; 71045; 71045-26; 71046; 71046-26; 99283-25

== ENCOUNTER 2022-01-20 13:46 | Emergency (ER) | payer MEDICARE, BC | END 2022-01-20 14:44 | disposition home or self-care (01) | LOC: MW.ED 13:46 | DX: J90 Pleural effusion, not elsewhere classified (principal); M19.90 Unspecified osteoarthritis, unspecified site; F17.210 Nicotine dependence, cigarettes, uncomplicated; Z91.018 Allergy to other foods | CPT/HCPCS: 71045; 71045-26; 99284 ==

== ENCOUNTER 2022-01-21 12:51 | Emergency (ER) | payer MEDICARE, BC ==
[2022-01-21 14:04] LABS: CARBON DIOXIDE,CO2 29.4 mmol/L (21.0-32.0); POTASSIUM,K 4.2 mmol/L (3.5-5.1)
== END 2022-01-21 16:35 | disposition home or self-care (01) ==
LOC: MW.ED 12:51
DX: C91.10 Chronic lymphocytic leukemia of B-cell type not having achieved remission (principal); M19.90 Unspecified osteoarthritis, unspecified site; Z91.018 Allergy to other foods; Z79.899 Other long term (current) drug therapy; Z98.890 Other specified postprocedural states
CPT/HCPCS: 32555; 36415; 71045; 71045-26; 80053; 85025; 99285-25

== ENCOUNTER 2022-02-02 14:59 | Emergency (ER) | payer MEDICARE, BC ==
[2022-02-02] MEDS ORDERED: Sodium Chloride 0.9% 10 ML Syringe FLUSH PRN (18:53)
[2022-02-02] MEDS ORDERED: Sodium Chloride 0.9% 2.5 ML Syringe FLUSH PRN (18:53)
[2022-02-02] MEDS ORDERED: Morphine 4 MG/ML Syringe IVPUSH ONE (19:30)
[2022-02-02] MEDS ORDERED: Midazolam 1 MG/ML 2 ML SDV IVPUSH ONE (20:07)
[2022-02-02 20:09] LABS: CARBON DIOXIDE,CO2 29.8 mmol/L (21.0-32.0)
== END 2022-02-02 22:29 | disposition home or self-care (01) ==
LOC: MW.ED 14:59
DX: J90 Pleural effusion, not elsewhere classified (principal); Z20.822 Contact with and (suspected) exposure to COVID-19; Z91.018 Allergy to other foods
CPT/HCPCS: 36415; 71045; 80053; 81003; 83605; 83880; 84484; 85025; 93005; 96374; 96375; 99285; J2250; J2270; U0002

== ENCOUNTER 2022-02-04 10:19 | Emergency (ER) | payer MEDICARE, BC ==
[2022-02-04] MEDS ORDERED: Sodium Chloride 0.9% 2.5 ML Syringe FLUSH PRN (10:42)
[2022-02-04] MEDS ORDERED: Sodium Chloride 0.9% 10 ML Syringe FLUSH PRN (10:42)
[2022-02-04] MEDS ORDERED: Morphine 4 MG/ML Syringe IVPUSH ONE ×2 (10:54→13:07)
[2022-02-04] MEDS ORDERED: Ondansetron 4 MG/2 ML SDV IVPUSH ONE (10:55)
[2022-02-04 11:22] LABS: CARBON DIOXIDE,CO2 29.6 mmol/L (21.0-32.0); POTASSIUM,K 4.5 mmol/L (3.5-5.1)
[2022-02-04] MEDS ORDERED: Furosemide 20 MG/2 ML VIAL IVPUSH ONE (13:07)
[2022-02-04] MEDS ORDERED: LORazepam 2 MG/ML SDV IVPUSH ONE (13:08)
[2022-02-04] MEDS ORDERED: Furosemide 40 MG/4 ML VIAL IVPUSH ONE (13:30)
[2022-02-04] MEDS ORDERED: Iopamidol 755 MG/ML 500 ML Multipack Bottle IVPUSH STA (15:09)
== END 2022-02-04 17:10 | disposition home or self-care (01) ==
LOC: MW.ED 10:19
DX: C91.10 Chronic lymphocytic leukemia of B-cell type not having achieved remission (principal); J91.0 Malignant pleural effusion; M54.6 Pain in thoracic spine; F17.210 Nicotine dependence, cigarettes, uncomplicated; M19.90 Unspecified osteoarthritis, unspecified site; Z91.018 Allergy to other foods; Z79.899 Other long term (current) drug therapy
CPT/HCPCS: 36415; 71045; 71275; 80053; 83735; 83880; 84484; 85025; 85610; 93005; 96374; 96375; 96376; 99285; J1940; J2060; J2270; J3490; Q9967

== ENCOUNTER 2022-02-06 09:13 | Emergency (ER) | payer MEDICARE, BC ==
[2022-02-06 10:24] LABS: POTASSIUM,K 4.3 mmol/L (3.5-5.1)
[2022-02-06 10:29] LABS: CARBON DIOXIDE,CO2 30.2 mmol/L (21.0-32.0)
[2022-02-06] MEDS ORDERED: HYDROmorphone 1 MG/ML Syringe IVPUSH ONE (12:10)
== END 2022-02-06 13:31 ==
LOC: MW.ED 09:13
DX: J90 Pleural effusion, not elsewhere classified (principal); R09.02 Hypoxemia; F17.210 Nicotine dependence, cigarettes, uncomplicated; Z88.0 Allergy status to penicillin; Z91.018 Allergy to other foods; Z79.899 Other long term (current) drug therapy; Z90.49 Acquired absence of other specified parts of digestive tract; Z20.822 Contact with and (suspected) exposure to COVID-19
CPT/HCPCS: 36415; 71045; 80053; 83605; 84484; 85025; 96374; 99285; J1170; U0002

== ENCOUNTER 2022-02-21 21:26 | Emergency (ER) | payer MEDICARE, BC ==
[2022-02-21] MEDS ORDERED: Morphine 2 MG/ML SYRINGE IVPUSH ONE (22:24)
[2022-02-21 23:18] LABS: BLOOD UREA NITROGEN,BUN 24 mg/dL (7.0-18.0); CARBON DIOXIDE,CO2 27.8 mmol/L (21.0-32.0); CHLORIDE,CL 93 mmol/L (98-107); GLUCOSE RANDOM 111 mg/dL (74-106); POTASSIUM,K 4.1 mmol/L (3.5-5.1); SODIUM,NA 130 mmol/L (136-145)
[2022-02-21 23:22] LABS: ESTIMATED GFR 69 mL/min (>60)
[2022-02-21] MEDS ORDERED: LORazepam 2 MG/ML SDV IVPUSH ONE (23:24)
== END 2022-02-22 01:56 | disposition home or self-care (01) ==
LOC: MW.ED 21:26
DX: M54.6 Pain in thoracic spine (principal); F17.210 Nicotine dependence, cigarettes, uncomplicated; Z88.0 Allergy status to penicillin
CPT/HCPCS: 36415; 71045; 80053; 83605; 85025; 85610; 87040; 96374; 96375; 99283; J2060; J2270; 99284

== ENCOUNTER 2022-02-28 13:22 | Inpatient (IN) | payer MEDICARE, BC ==
[2022-02-28] MEDS ORDERED: Sodium Chloride 0.9% 10 ML Syringe FLUSH PRN (15:44)
[2022-02-28] MEDS ORDERED: Sodium Chloride 0.9% 1,000 ML IV ONE (15:44)
[2022-02-28] MEDS ORDERED: Sodium Chloride 0.9% 2.5 ML Syringe FLUSH PRN (15:44)
[2022-02-28 16:40] LABS: CARBON DIOXIDE,CO2 32.3 mmol/L (21.0-32.0); POTASSIUM,K 3.1 mmol/L (3.5-5.1)
[2022-02-28] MEDS ORDERED: Iopamidol 755 MG/ML 500 ML Multipack Bottle IVPUSH ONE (18:11)
[2022-02-28] MEDS ORDERED: cefTRIAXone 1 GM in Sodium Chloride 0.9% 50 ML IV ONE (19:08)
[2022-02-28] MEDS ORDERED: metroNIDAZOLE/Normal Saline 500 MG in Premix Bag 1 BAG IV ONE (19:08)
[2022-02-28] MEDS ORDERED: Morphine 4 MG/ML Syringe IVPUSH PRN (19:50)
[2022-02-28] MEDS ORDERED: Morphine 2 MG/ML SYRINGE ONE (20:00)
[2022-02-28] MEDS ORDERED: Albuterol/Ipratropium 3.0-0.5 MG/3 ML Neb Soln NEB PRN (20:49)
[2022-02-28] MEDS ORDERED: Potassium Chloride 20 MEQ in Premix Bag 1 BAG IV ONE (20:54)
[2022-02-28] MEDS: Ciprofloxacin in D5W 400 MG in Premix Bag 1 BAG IV SCH ×2 (22:18)
[2022-02-28] MEDS: Pantoprazole 40 MG in Sodium Chloride 0.9% 10 ML IVPUSH SCH (22:18)
[2022-02-28] MEDS ORDERED: guaiFENesin 100 MG/5 ML Soln 5 ML UD Cup PO PRN (22:38)
[2022-02-28] MEDS: Acetaminophen/oxyCODONE 325-10 MG Tab PO PRN (22:54)
[2022-03-01] MEDS: Morphine 2 MG/ML SYRINGE IVPUSH PRN ×5 (00:13→16:46)
[2022-03-01] MEDS: metroNIDAZOLE/Normal Saline 500 MG in Premix Bag 1 BAG IV SCH ×4 (01:27→18:06)
[2022-03-01] MEDS: Acetaminophen/oxyCODONE 325-10 MG Tab PO PRN ×2 (06:23→18:00)
[2022-03-01 06:29] LABS: CARBON DIOXIDE,CO2 30.9 mmol/L (21.0-32.0); POTASSIUM,K 3.3 mmol/L (3.5-5.1)
[2022-03-01] MEDS: Ciprofloxacin in D5W 400 MG in Premix Bag 1 BAG IV SCH ×4 (08:33→21:29)
[2022-03-01] MEDS: DULoxetine 30 MG Cap PO SCH (08:33)
[2022-03-01] MEDS ORDERED: Furosemide 20 MG/2 ML VIAL IVPUSH ONE ×2 (09:58→18:00)
[2022-03-01] MEDS ORDERED: Potassium Chloride 20 MEQ Tab.ER PO ONE (10:15)
[2022-03-01] MEDS ORDERED: Magnesium Sulfate/Water 2 GM in Premix Bag 1 BAG IV ONE (10:15)
[2022-03-01] MEDS: Escitalopram 10 MG Tab PO SCH (11:27)
[2022-03-01] MEDS: LORazepam 0.5 MG Tab PO PRN ×2 (12:55→21:30)
[2022-03-01] MEDS: Pantoprazole 40 MG in Sodium Chloride 0.9% 10 ML IVPUSH SCH (21:30)
[2022-03-02] MEDS: metroNIDAZOLE/Normal Saline 500 MG in Premix Bag 1 BAG IV SCH ×4 (00:48→17:59)
[2022-03-02] MEDS: Acetaminophen/oxyCODONE 325-10 MG Tab PO PRN ×3 (01:51→18:08)
[2022-03-02 07:09] LABS: CARBON DIOXIDE,CO2 28.8 mmol/L (21.0-32.0); POTASSIUM,K 3.3 mmol/L (3.5-5.1)
[2022-03-02] MEDS: Escitalopram 10 MG Tab PO SCH (09:57)
[2022-03-02] MEDS: DULoxetine 30 MG Cap PO SCH (09:57)
[2022-03-02] MEDS: Ciprofloxacin in D5W 400 MG in Premix Bag 1 BAG IV SCH ×4 (09:59→20:00)
[2022-03-02] MEDS ORDERED: Potassium Chloride 20 MEQ Tab.ER PO ONE (12:30)
[2022-03-02] MEDS: LORazepam 0.5 MG Tab PO PRN (14:52)
[2022-03-02] MEDS: Albuterol 8 GM Inhaler INH PRN (15:33)
[2022-03-02] MEDS: Pantoprazole 40 MG in Sodium Chloride 0.9% 10 ML IVPUSH SCH (19:59)
[2022-03-03] MEDS: Acetaminophen/oxyCODONE 325-10 MG Tab PO PRN ×5 (00:37→23:08)
[2022-03-03] MEDS: metroNIDAZOLE/Normal Saline 500 MG in Premix Bag 1 BAG IV SCH ×5 (00:37→23:09)
[2022-03-03] MEDS: Albuterol 8 GM Inhaler INH PRN ×4 (00:38→23:09)
[2022-03-03 07:05] LABS: CARBON DIOXIDE,CO2 29.8 mmol/L (21.0-32.0); POTASSIUM,K 3.8 mmol/L (3.5-5.1)
[2022-03-03] MEDS ORDERED: Magnesium Sulfate/Water 2 GM in Premix Bag 1 BAG IV ONE (08:13)
[2022-03-03] MEDS ORDERED: Sodium Chloride 0.9% 10 ML Syringe FLUSH PRN (08:14)
[2022-03-03] MEDS ORDERED: Sodium Chloride 0.9% 2.5 ML Syringe FLUSH PRN (08:14)
[2022-03-03] MEDS: Escitalopram 10 MG Tab PO SCH (08:37)
[2022-03-03] MEDS: DULoxetine 30 MG Cap PO SCH (08:37)
[2022-03-03] MEDS: Ciprofloxacin in D5W 400 MG in Premix Bag 1 BAG IV SCH ×4 (08:39→20:23)
[2022-03-03] MEDS ORDERED: Cyclobenzaprine 5 MG Tab PO PRN (09:01)
[2022-03-03] MEDS ORDERED: Furosemide 20 MG/2 ML VIAL IVPUSH ONE (10:54)
[2022-03-03] MEDS: Heparin Sodium 5,000 Units/ML Vial SUBCUT SCH ×2 (12:05→23:09)
[2022-03-03] MEDS: Phosphorus #1 250 MG Tab PO SCH ×3 (12:05→23:08)
[2022-03-03] MEDS: LORazepam 0.5 MG Tab PO PRN (16:56)
[2022-03-04] MEDS: Ondansetron 4 MG/2 ML SDV IVPUSH PRN ×2 (02:06→06:09)
[2022-03-04] MEDS: Acetaminophen/oxyCODONE 325-10 MG Tab PO PRN ×4 (05:34→20:18)
[2022-03-04] MEDS: metroNIDAZOLE/Normal Saline 500 MG in Premix Bag 1 BAG IV SCH (05:34)
[2022-03-04] MEDS: Phosphorus #1 250 MG Tab PO SCH (05:34)
[2022-03-04 07:46] LABS: CARBON DIOXIDE,CO2 31.9 mmol/L (21.0-32.0); POTASSIUM,K 3.5 mmol/L (3.5-5.1)
[2022-03-04] MEDS ORDERED: Potassium Chloride 20 MEQ Tab.ER PO ONE ×2 (07:53→10:15)
[2022-03-04] MEDS: Ciprofloxacin in D5W 400 MG in Premix Bag 1 BAG IV SCH ×2 (09:00)
[2022-03-04] MEDS: Vancomycin 125 MG Cap PO SCH ×4 (10:10→23:09)
[2022-03-04] MEDS: Escitalopram 10 MG Tab PO SCH (10:11)
[2022-03-04] MEDS: DULoxetine 30 MG Cap PO SCH (10:11)
[2022-03-04] MEDS: Albuterol 8 GM Inhaler INH PRN ×2 (10:13→20:21)
[2022-03-04] MEDS: Heparin Sodium 5,000 Units/ML Vial SUBCUT SCH ×2 (10:14→23:05)
[2022-03-04] MEDS: LORazepam 0.5 MG Tab PO PRN ×2 (13:10→23:09)
[2022-03-04] MEDS: XYLIMELTS PO SCH ×2 (14:30→20:19)
[2022-03-05] MEDS: Acetaminophen/oxyCODONE 325-10 MG Tab PO PRN ×4 (02:25→18:25)
[2022-03-05] MEDS: Vancomycin 125 MG Cap PO SCH ×4 (05:06→23:08)
[2022-03-05 08:33] LABS: CARBON DIOXIDE,CO2 32.5 mmol/L (21.0-32.0); POTASSIUM,K 4.1 mmol/L (3.5-5.1)
[2022-03-05] MEDS ORDERED: Magnesium Sulfate/Water 2 GM in Premix Bag 1 BAG IV ONE (08:56)
[2022-03-05] MEDS: DULoxetine 30 MG Cap PO SCH (09:24)
[2022-03-05] MEDS: XYLIMELTS PO SCH ×2 (09:24→20:36)
[2022-03-05] MEDS: Escitalopram 10 MG Tab PO SCH (09:24)
[2022-03-05] MEDS: LORazepam 0.5 MG Tab PO PRN ×2 (10:09→20:39)
[2022-03-05] MEDS: Heparin Sodium 5,000 Units/ML Vial SUBCUT SCH ×2 (12:00→23:08)
[2022-03-05] MEDS: Albuterol 8 GM Inhaler INH PRN ×2 (13:34→20:37)
[2022-03-06] MEDS: Acetaminophen/oxyCODONE 325-10 MG Tab PO PRN ×4 (02:08→20:06)
[2022-03-06] MEDS: Albuterol 8 GM Inhaler INH PRN ×2 (02:10→20:13)
[2022-03-06] MEDS: LORazepam 0.5 MG Tab PO PRN ×3 (05:20→23:01)
[2022-03-06] MEDS: Vancomycin 125 MG Cap PO SCH ×4 (05:20→23:01)
[2022-03-06] MEDS: DULoxetine 30 MG Cap PO SCH (09:08)
[2022-03-06] MEDS: Escitalopram 10 MG Tab PO SCH (09:08)
[2022-03-06] MEDS: XYLIMELTS PO SCH ×2 (09:10→20:06)
[2022-03-06] MEDS: Heparin Sodium 5,000 Units/ML Vial SUBCUT SCH ×2 (11:51→23:01)
[2022-03-06 14:24] LABS: CARBON DIOXIDE,CO2 32.6 mmol/L (21.0-32.0); POTASSIUM,K 4.2 mmol/L (3.5-5.1)
[2022-03-07] MEDS: Acetaminophen/oxyCODONE 325-10 MG Tab PO PRN ×3 (02:28→13:05)
[2022-03-07 05:54] LABS: CARBON DIOXIDE,CO2 33.7 mmol/L (21.0-32.0); POTASSIUM,K 4.3 mmol/L (3.5-5.1)
[2022-03-07] MEDS: LORazepam 0.5 MG Tab PO PRN (06:02)
[2022-03-07] MEDS: Vancomycin 125 MG Cap PO SCH ×2 (06:02→12:16)
[2022-03-07] MEDS: DULoxetine 30 MG Cap PO SCH (08:26)
[2022-03-07] MEDS: Escitalopram 10 MG Tab PO SCH (08:26)
[2022-03-07] MEDS: XYLIMELTS PO SCH (11:42)
[2022-03-07] MEDS: Heparin Sodium 5,000 Units/ML Vial SUBCUT SCH (12:16)
[2022-03-07] MEDS ORDERED: Fluconazole 100 MG Tab PO ONE (13:00)
== END 2022-03-07 14:20 | disposition home or self-care (01) | DRG 372 ==
LOC: MW.ED 13:22 → MW.MS 20:03 → UNDOADMIN 20:51 → UNDODISIN 03-07 14:20
PROVIDERS: ADMIT Student in an Organized Health Care Education/Training Program; ATTEND Student in an Organized Health Care Education/Training Program
DX: A04.72 Enterocolitis due to Clostridium difficile, not specified as recurrent (principal); J91.0 Malignant pleural effusion; K52.9 Noninfective gastroenteritis and colitis, unspecified; J96.11 Chronic respiratory failure with hypoxia; H54.7 Unspecified visual loss; M19.90 Unspecified osteoarthritis, unspecified site; G89.29 Other chronic pain; M84.48XA Pathological fracture, other site, initial encounter for fracture; M54.9 Dorsalgia, unspecified; Z86.19 Personal history of other infectious and parasitic diseases; Z90.49 Acquired absence of other specified parts of digestive tract; Z20.822 Contact with and (suspected) exposure to COVID-19; Z86.010 Personal history of colon polyps; F17.210 Nicotine dependence, cigarettes, uncomplicated; Z91.018 Allergy to other foods; Z88.1 Allergy status to other antibiotic agents; M54.6 Pain in thoracic spine; Z79.899 Other long term (current) drug therapy; Z85.6 Personal history of leukemia
CPT/HCPCS: 36415; 71275; 74177; 80053; 83605; 85025; 87040 ×2; 96360; 99284; J0696; J2270; J3490 ×2; J7030; Q9967; U0002; 80048; 81003; 82947; 83735; 84100; 87045; 87046; 87324; 87449; 87493; 87899; 97110-GP; 97162-GP; 97530-GP; A9270-GY; C9113; J0744; J1644; J1940; J2405; J3475; J3480

== ENCOUNTER 2022-03-15 11:32 | Inpatient (IN) | payer MEDICARE, BC ==
[2022-03-15] MEDS ORDERED: Sodium Chloride 0.9% 1,000 ML IV ONE (13:52)
[2022-03-15] MEDS ORDERED: Sodium Chloride 0.9% 10 ML Syringe FLUSH PRN (13:52)
[2022-03-15] MEDS ORDERED: Sodium Chloride 0.9% 2.5 ML Syringe FLUSH PRN (13:52)
[2022-03-15] MEDS ORDERED: Morphine 2 MG/ML SYRINGE IVPUSH ONE ×2 (14:06→16:04)
[2022-03-15 14:13] LABS: CORONAVIRUS COVID-19 NAA NEGATIVE (NEGATIVE); INFLUENZA A NAA NEGATIVE (NEGATIVE); INFLUENZA B NAA NEGATIVE (NEGATIVE)
[2022-03-15 14:27] LABS: CARBON DIOXIDE,CO2 31.9 mmol/L (21.0-32.0); POTASSIUM,K 4.2 mmol/L (3.5-5.1)
[2022-03-15] MEDS ORDERED: Iopamidol 755 MG/ML 500 ML Multipack Bottle IVPUSH ONE (15:35)
[2022-03-15] MEDS ORDERED: Albuterol 0.083% 2.5 MG/3 ML Neb Soln NEB ONE (16:16)
[2022-03-15] MEDS ORDERED: Aspirin 81 MG Tab.Chew PO ONE (16:32)
[2022-03-15] MEDS ORDERED: LORazepam 1 MG Tab PO ONE (16:33)
[2022-03-15] MEDS ORDERED: LORazepam 0.5 MG Tab PO ONE (16:34)
[2022-03-15] MEDS ORDERED: Lidocaine 1% 5 ML VIAL ONE (18:14)
[2022-03-15] MEDS ORDERED: Lidocaine 1% 5 ML VIAL INJECT ONE (18:50)
[2022-03-15] MEDS ORDERED: Ondansetron 4 MG/2 ML SDV IVPUSH PRN (21:08)
[2022-03-15] MEDS ORDERED: IBRUTINIB 420 MG SCH (21:15)
[2022-03-15] MEDS ORDERED: guaiFENesin 100 MG/5 ML Soln 5 ML UD Cup PO PRN (21:15)
[2022-03-15] MEDS: Vancomycin 125 MG Cap PO SCH (21:44)
[2022-03-15] MEDS: Ondansetron 4 MG Tab PO SCH (21:44)
[2022-03-15] MEDS: Acetaminophen/oxyCODONE 325-10 MG Tab PO PRN (21:44)
[2022-03-15] MEDS ORDERED: Albuterol/Ipratropium 3.0-0.5 MG/3 ML Neb Soln NEB PRN (21:45)
[2022-03-16] MEDS: IMBRUVICA 420 MG PO SCH ×2 (00:10→22:58)
[2022-03-16] MEDS: LORazepam 0.5 MG Tab PO PRN ×3 (00:10→16:44)
[2022-03-16] MEDS: Vancomycin 125 MG Cap PO SCH ×5 (00:14→23:00)
[2022-03-16] MEDS: Ondansetron 4 MG Tab PO SCH ×4 (03:38→20:41)
[2022-03-16] MEDS: Acetaminophen/oxyCODONE 325-10 MG Tab PO PRN ×4 (06:00→20:42)
[2022-03-16 06:18] LABS: CARBON DIOXIDE,CO2 31.8 mmol/L (21.0-32.0); POTASSIUM,K 3.9 mmol/L (3.5-5.1)
[2022-03-16] MEDS ORDERED: Magnesium Sulfate/Water 2 GM in Premix Bag 1 BAG IV ONE (08:39)
[2022-03-16] MEDS ORDERED: IMBRUVICA 420 MG PO SCH (09:00)
[2022-03-16] MEDS: Albuterol 8 GM Inhaler INH PRN ×3 (09:05→23:04)
[2022-03-16] MEDS: Furosemide 20 MG Tab PO SCH (09:09)
[2022-03-16] MEDS: Acidophilus with Citrus Pectin/L.acidophilus Tab PO SCH (09:09)
[2022-03-16] MEDS: DULoxetine 30 MG Cap PO SCH (09:09)
[2022-03-16] MEDS: Omeprazole 20 MG Cap.CR PO SCH (09:09)
[2022-03-16] MEDS: Escitalopram 10 MG Tab PO SCH (09:12)
[2022-03-16] MEDS: Fluconazole 100 MG Tab PO SCH (10:28)
[2022-03-17] MEDS: Acetaminophen/oxyCODONE 325-10 MG Tab PO PRN ×5 (02:25→21:05)
[2022-03-17] MEDS: Ondansetron 4 MG Tab PO SCH ×4 (02:25→21:06)
[2022-03-17] MEDS: Vancomycin 125 MG Cap PO SCH ×4 (05:24→23:48)
[2022-03-17 05:52] LABS: CARBON DIOXIDE,CO2 34.1 mmol/L (21.0-32.0); POTASSIUM,K 3.9 mmol/L (3.5-5.1)
[2022-03-17] MEDS ORDERED: Sodium Chloride 0.9% 10 ML Syringe FLUSH PRN (08:24)
[2022-03-17] MEDS ORDERED: Sodium Chloride 0.9% 2.5 ML Syringe FLUSH PRN (08:24)
[2022-03-17] MEDS: DULoxetine 30 MG Cap PO SCH (08:31)
[2022-03-17] MEDS: Furosemide 20 MG Tab PO SCH (08:31)
[2022-03-17] MEDS: Omeprazole 20 MG Cap.CR PO SCH (08:31)
[2022-03-17] MEDS: Escitalopram 10 MG Tab PO SCH (08:32)
[2022-03-17] MEDS: Fluconazole 100 MG Tab PO SCH (10:37)
[2022-03-17] MEDS: LORazepam 0.5 MG Tab PO PRN ×2 (10:38→18:47)
[2022-03-17] MEDS: Acidophilus with Citrus Pectin/L.acidophilus Tab PO SCH (10:39)
[2022-03-17] MEDS: Albuterol 8 GM Inhaler INH PRN ×3 (10:40→21:02)
[2022-03-17] MEDS: Simethicone 80 MG Tab.Chew PO PRN (18:21)
[2022-03-17] MEDS: IMBRUVICA 420 MG PO SCH (21:04)
[2022-03-18] MEDS: Acetaminophen/oxyCODONE 325-10 MG Tab PO PRN ×3 (02:21→10:42)
[2022-03-18] MEDS: Ondansetron 4 MG Tab PO SCH ×3 (02:22→14:37)
[2022-03-18] MEDS: Vancomycin 125 MG Cap PO SCH ×2 (06:19→12:24)
[2022-03-18] MEDS: Acidophilus with Citrus Pectin/L.acidophilus Tab PO SCH (09:25)
[2022-03-18] MEDS: Fluconazole 100 MG Tab PO SCH (09:25)
[2022-03-18] MEDS: DULoxetine 30 MG Cap PO SCH (09:25)
[2022-03-18] MEDS: Furosemide 20 MG Tab PO SCH (09:25)
[2022-03-18] MEDS: Omeprazole 20 MG Cap.CR PO SCH (09:25)
[2022-03-18] MEDS: Escitalopram 10 MG Tab PO SCH (09:26)
[2022-03-18] MEDS: Albuterol 8 GM Inhaler INH PRN (10:43)
[2022-03-18] MEDS: Simethicone 80 MG Tab.Chew PO PRN (12:24)
[2022-03-18] MEDS ORDERED: Acetaminophen/oxyCODONE 325-10 MG Tab PO ONE (14:24)
== END 2022-03-18 15:04 | disposition home or self-care (01) | DRG 840 ==
LOC: MW.ED 11:32 → MW.MS 17:29
PROVIDERS: ADMIT Student in an Organized Health Care Education/Training Program; ATTEND Internal Medicine
PROC: 0W993ZZ Drainage of Right Pleural Cavity, Percutaneous Approach (ICD-10-PCS; principal; 2022-03-15)
DX: C91.10 Chronic lymphocytic leukemia of B-cell type not having achieved remission (principal); E86.0 Dehydration; J81.0 Acute pulmonary edema; S22.060A Wedge compression fracture of T7-T8 vertebra, initial encounter for closed fracture; J96.11 Chronic respiratory failure with hypoxia; J91.0 Malignant pleural effusion; M54.6 Pain in thoracic spine; F41.9 Anxiety disorder, unspecified; Z91.018 Allergy to other foods; Z88.8 Allergy status to other drugs, medicaments and biological substances; Z20.822 Contact with and (suspected) exposure to COVID-19; R53.1 Weakness; Z90.49 Acquired absence of other specified parts of digestive tract; Z79.899 Other long term (current) drug therapy; Z99.81 Dependence on supplemental oxygen; Z87.891 Personal history of nicotine dependence; X58.XXXA Exposure to other specified factors, initial encounter
CPT/HCPCS: 0240U; 32555; 36415; 71045; 71046; 71275; 80048; 80053; 81001; 83605; 83735; 84100; 84484; 85025; 87040; 93005; 94640; 96361; 96374; 96376; 97161; 99285; 93010; 99284; A9270-GY; J2270; J3475; J3490; J7030; J7620-GY; Q9967

== ENCOUNTER 2022-03-25 12:53 | Observation (INO) | payer MEDICARE, BC ==
[2022-03-25 13:55] LABS: CORONAVIRUS COVID-19 NAA NEGATIVE (NEGATIVE); INFLUENZA A NAA NEGATIVE (NEGATIVE); INFLUENZA B NAA NEGATIVE (NEGATIVE); RESPIRATORY SYNCYTIAL VIR NAA NEGATIVE (NEGATIVE)
[2022-03-25 14:38] LABS: BLOOD UREA NITROGEN,BUN 12 mg/dL (7.0-18.0); CARBON DIOXIDE,CO2 36.5 mmol/L (21.0-32.0); CHLORIDE,CL 95 mmol/L (98-107); GLUCOSE RANDOM 124 mg/dL (74-106); POTASSIUM,K 3.4 mmol/L (3.5-5.1); SODIUM,NA 138 mmol/L (136-145)
[2022-03-25 14:50] LABS: ESTIMATED GFR 79 mL/min (>60)
[2022-03-25] MEDS ORDERED: Lidocaine 2% 5 ML SDV INJECT ONE (15:39)
[2022-03-25] MEDS ORDERED: LORazepam 2 MG/ML SDV IVPUSH ONE (15:41)
[2022-03-25] MEDS ORDERED: Lidocaine 1% PF 2 ML SDV INJECT ONE (15:47)
[2022-03-25] MEDS ORDERED: HYDROmorphone 2 MG/ML Syringe IVPUSH ONE (15:50)
[2022-03-25] MEDS ORDERED: guaiFENesin 100 MG/5 ML Soln 5 ML UD Cup PO PRN (22:47)
[2022-03-25] MEDS ORDERED: Ondansetron 4 MG Tab PO PRN (22:47)
[2022-03-25] MEDS ORDERED: Albuterol 8 GM Inhaler INH PRN (22:47)
[2022-03-25] MEDS: Acetaminophen/oxyCODONE 325-10 MG Tab PO PRN (23:33)
[2022-03-26] MEDS: Acetaminophen/oxyCODONE 325-10 MG Tab PO PRN ×3 (03:50→13:04)
[2022-03-26] MEDS ORDERED: LORazepam 0.5 MG Tab PO PRN (07:59)
[2022-03-26] MEDS ORDERED: Furosemide 20 MG Tab PO SCH (08:45)
[2022-03-26] MEDS ORDERED: Acidophilus with Citrus Pectin/L.acidophilus Tab PO SCH (09:00)
[2022-03-26] MEDS ORDERED: Omeprazole 20 MG Cap.CR PO SCH (09:00)
== END 2022-03-26 14:30 | disposition home or self-care (01) ==
LOC: MW.ED 12:53 → MW.MS 18:59
PROVIDERS: ADMIT Internal Medicine; ATTEND Internal Medicine
DX: J96.11 Chronic respiratory failure with hypoxia (principal); J90 Pleural effusion, not elsewhere classified; R53.1 Weakness; C91.10 Chronic lymphocytic leukemia of B-cell type not having achieved remission; S22.060A Wedge compression fracture of T7-T8 vertebra, initial encounter for closed fracture; Z98.890 Other specified postprocedural states; Z79.899 Other long term (current) drug therapy; Z20.822 Contact with and (suspected) exposure to COVID-19; Z91.018 Allergy to other foods; Z88.1 Allergy status to other antibiotic agents; F41.9 Anxiety disorder, unspecified; F32.A Depression, unspecified; M19.90 Unspecified osteoarthritis, unspecified site; G89.29 Other chronic pain; M54.9 Dorsalgia, unspecified; Z87.891 Personal history of nicotine dependence; Z90.49 Acquired absence of other specified parts of digestive tract
CPT/HCPCS: 0241U; 32554; 36415; 71045; 80053; 83735; 83880; 84484; 85025; 86850; 86900; 86901; 93005; 96374; 99285; A9270; G0378; J1170; 93010; J3490

== ENCOUNTER 2022-04-19 00:57 | Inpatient (IN) | payer MEDICARE, BC ==
[2022-04-19] MEDS ORDERED: methylPREDNISolone Sodium Succinate 40 MG/1 ML SDV IVPUSH ONE (01:02)
[2022-04-19] MEDS ORDERED: Sodium Chloride 0.9% 2.5 ML Syringe FLUSH PRN (01:02)
[2022-04-19] MEDS ORDERED: Albuterol/Ipratropium 3.0-0.5 MG/3 ML Neb Soln NEB ONE (01:02)
[2022-04-19] MEDS ORDERED: Sodium Chloride 0.9% 10 ML Syringe FLUSH PRN (01:02)
[2022-04-19] MEDS ORDERED: Cefepime 2 GM in Premix Bag 1 BAG IV ONE (01:56)
[2022-04-19 02:03] LABS: CARBON DIOXIDE,CO2 34.1 mmol/L (21.0-32.0); POTASSIUM,K 3.9 mmol/L (3.5-5.1)
[2022-04-19 02:04] LABS: CORONAVIRUS COVID-19 NAA NEGATIVE (NEGATIVE); INFLUENZA A NAA NEGATIVE (NEGATIVE); INFLUENZA B NAA NEGATIVE (NEGATIVE); RESPIRATORY SYNCYTIAL VIR NAA NEGATIVE (NEGATIVE)
[2022-04-19] MEDS: LORazepam 0.5 MG Tab PO PRN ×3 (06:25→21:57)
[2022-04-19] MEDS: Acetaminophen/oxyCODONE 325-10 MG Tab PO PRN ×2 (06:49→10:49)
[2022-04-19] MEDS: Cefepime 2 GM in Sodium Chloride 0.9% 50 ML IV SCH ×2 (13:05→20:31)
[2022-04-19] MEDS: Enoxaparin 40 MG/0.4 ML Syringe SUBCUT SCH (13:06)
[2022-04-19] MEDS: Albuterol/Ipratropium 3.0-0.5 MG/3 ML Neb Soln NEB PRN ×2 (13:15→20:30)
[2022-04-19] MEDS: Acetaminophen 325 MG Tab PO PRN (14:53)
[2022-04-19] MEDS ORDERED: Acetaminophen 325 MG Tab PO PRN (15:12)
[2022-04-19] MEDS: oxyCODONE 5 MG Tab PO SCH (17:58)
[2022-04-19] MEDS: guaiFENesin 600 MG Tab.ER PO SCH (21:56)
[2022-04-20] MEDS: oxyCODONE 5 MG Tab PO SCH ×5 (00:01→23:52)
[2022-04-20] MEDS: Albuterol/Ipratropium 3.0-0.5 MG/3 ML Neb Soln NEB PRN ×4 (02:28→23:53)
[2022-04-20] MEDS: Acetaminophen 325 MG Tab PO PRN ×2 (02:48→10:51)
[2022-04-20] MEDS: Cefepime 2 GM in Sodium Chloride 0.9% 50 ML IV SCH ×3 (03:39→20:05)
[2022-04-20] MEDS: LORazepam 0.5 MG Tab PO PRN ×3 (05:59→22:02)
[2022-04-20 09:03] LABS: CARBON DIOXIDE,CO2 34.1 mmol/L (21.0-32.0)
[2022-04-20] MEDS: guaiFENesin 600 MG Tab.ER PO SCH ×2 (09:58→21:02)
[2022-04-20] MEDS: Enoxaparin 40 MG/0.4 ML Syringe SUBCUT SCH (12:21)
[2022-04-20] MEDS ORDERED: Polyethylene Glycol 3350 Powder 17 GM Packet PO PRN (13:52)
[2022-04-20] MEDS ORDERED: Melatonin 3 MG Tab PO PRN (13:53)
[2022-04-20] MEDS: Docusate Sodium 100 MG Cap PO SCH (21:02)
[2022-04-21] MEDS: Cefepime 2 GM in Sodium Chloride 0.9% 50 ML IV SCH ×2 (04:07→12:40)
[2022-04-21] MEDS: oxyCODONE 5 MG Tab PO SCH ×2 (06:18→11:30)
[2022-04-21 06:49] LABS: CARBON DIOXIDE,CO2 38.1 mmol/L (21.0-32.0); POTASSIUM,K 3.3 mmol/L (3.5-5.1)
[2022-04-21] MEDS ORDERED: Potassium Chloride 20 MEQ Tab.ER PO ONE (07:10)
[2022-04-21] MEDS: Docusate Sodium 100 MG Cap PO SCH ×2 (08:04→08:06)
[2022-04-21] MEDS: guaiFENesin 600 MG Tab.ER PO SCH (08:04)
[2022-04-21] MEDS: LORazepam 0.5 MG Tab PO PRN (08:04)
[2022-04-21] MEDS ORDERED: Azithromycin 500 MG in Sodium Chloride 0.9% 250 ML IV SCH (09:00)
[2022-04-21] MEDS: Enoxaparin 40 MG/0.4 ML Syringe SUBCUT SCH (12:40)
== END 2022-04-21 14:10 | DRG 194 ==
LOC: MW.ED 00:57 → MW.MS 02:47
PROVIDERS: ADMIT Hospitalist; ATTEND Hospitalist
DX: J18.9 Pneumonia, unspecified organism (principal); J90 Pleural effusion, not elsewhere classified; J44.0 Chronic obstructive pulmonary disease with (acute) lower respiratory infection; C91.10 Chronic lymphocytic leukemia of B-cell type not having achieved remission; J44.1 Chronic obstructive pulmonary disease with (acute) exacerbation; F32.A Depression, unspecified; Z97.8 Presence of other specified devices; Z20.822 Contact with and (suspected) exposure to COVID-19; G89.29 Other chronic pain; F41.9 Anxiety disorder, unspecified; Z79.52 Long term (current) use of systemic steroids; Z79.899 Other long term (current) drug therapy; Z85.6 Personal history of leukemia; Z99.81 Dependence on supplemental oxygen; Z87.19 Personal history of other diseases of the digestive system; Z90.49 Acquired absence of other specified parts of digestive tract; Z88.8 Allergy status to other drugs, medicaments and biological substances; Z97.2 Presence of dental prosthetic device (complete) (partial); Z97.3 Presence of spectacles and contact lenses; Z87.891 Personal history of nicotine dependence; Z86.010 Personal history of colon polyps
CPT/HCPCS: 0241U; 36415; 71045; 80048; 80053; 80202; 83880; 84484; 85025; 87040; 93005; 94640; 96365; 96375; 97161; 97530; 99285; 93010; A9270-GY; J0456; J0692; J1650; J2920; J3370; J7050; J7060; J7620-GY; U0002

== ENCOUNTER 2022-06-09 10:59 | Day surgery (SDC) | payer MEDICARE, BC ==
[~2022-06-09 10:59] MED LIST changes: -Sodium Chloride 0.9% 10 ML SDV IV PRN; -Sodium Chloride 0.9% 10 ML Syringe FLUSH PRN; -Sodium Chloride 0.9% 2.5 ML Syringe FLUSH PRN
[2022-06-09] MEDS ORDERED: Midazolam 1 MG/ML 2 ML SDV ONE (12:02)
[2022-06-09] MEDS ORDERED: fentaNYL 100 MCG/2 ML SDV ONE (12:02)
[2022-06-09] MEDS ORDERED: Propofol 200 MG/20 ML SDV ONE (12:02)
[2022-06-09] MEDS ORDERED: Lidocaine 1% 20 ML MDV ONE (12:12)
[2022-06-09] MEDS ORDERED: Bupivacaine 0.5% 10 ML SDV ONE (12:12)
[2022-06-09] MEDS ORDERED: Ketamine 500 mg/10 ML MDV ONE (13:15)
[2022-06-09] MEDS ORDERED: Lactated Ringers 1,000 ML IV SCH (14:30)
== END 2022-06-09 15:36 | disposition home or self-care (01) ==
LOC: MW.SDS 10:59
PROVIDERS: ATTEND Surgery
DX: J90 Pleural effusion, not elsewhere classified (principal); F41.9 Anxiety disorder, unspecified; F32.A Depression, unspecified; M85.80 Other specified disorders of bone density and structure, unspecified site; Z85.6 Personal history of leukemia; Z88.1 Allergy status to other antibiotic agents; Z88.5 Allergy status to narcotic agent; Z79.899 Other long term (current) drug therapy; Z87.891 Personal history of nicotine dependence
CPT/HCPCS: 32552; J2250; J2704; J3490; J7120; J3010

== ENCOUNTER 2022-07-24 21:18 | Emergency (ER) | payer MEDICARE, BC ==
[2022-07-24 21:49] LABS: BASOPHILS PERCENT AUTO 0.2 % (0.0-1.5); EOSINOPHILS ABSOLUTE AUTO 0.2 K/uL (0.0-0.7); EOSINOPHILS PERCENT AUTO 3.4 % (0.0-7.0); HEMATOCRIT 34.2 % (36.0-46.0); HEMOGLOBIN 10.8 g/dL (12.0-16.0); LYMPHOCYTES ABSOLUTE AUTO 2.1 K/uL (0.6-2.4); LYMPHOCYTES PERCENT AUTO 36.8 % (16.0-40.0); MEAN CORPUSCULAR HEMOGLOBIN 27.6 pg (27.0-32.0); MEAN CORPUSCULAR HGB CONC 31.6 g/dL (31.0-37.0); MEAN CORPUSCULAR VOLUME 87.5 fL (80.0-98.0); MONOCYTES ABSOLUTE AUTO 0.4 K/uL (0.0-0.8); MONOCYTES PERCENT AUTO 7.6 % (0.0-15.0); NEUTROPHILS ABSOLUTE AUTO 2.9 K/uL (1.4-5.7); NRBC ABSOLUTE 0 K/uL; RED BLOOD CELL COUNT 3.91 M/uL (4.30-5.90); WHITE BLOOD CELL COUNT,WBC 5.65 K/uL (4.0-11.0)
[2022-07-24] MEDS ORDERED: Furosemide 20 MG/2 ML VIAL IVPUSH ONE (21:50)
[2022-07-24] MEDS ORDERED: Morphine 4 MG/ML Syringe IVPUSH ONE (21:50)
[2022-07-24] MEDS ORDERED: Ondansetron 4 MG/2 ML SDV IVPUSH ONE (21:50)
[2022-07-24 22:04] LABS: APPEARANCE,URINE CLEAR; BILIRUBIN,URINE NEGATIVE (NEGATIVE); COLOR,URINE DARK YELLOW; GLUCOSE,URINE NEGATIVE (NEGATIVE); KETONES,URINE TRACE mg/dL (NEGATIVE); LEUKOCYTE ESTERASE,URINE NEGATIVE (NEGATIVE); NITRITE,URINE NEGATIVE (NEGATIVE); OCCULT BLOOD,URINE NEGATIVE (NEGATIVE); PH,URINE 6.5 (5.0-8.0); PROTEIN,URINE TRACE mg/dL (NEGATIVE); UROBILINOGEN,URINE 0.2 EU/dL (<2.0)
[2022-07-24 22:09] LABS: PLATELET COUNT,PLT 151 K/uL (150-400)
[2022-07-24 22:12] LABS: BACTERIA,URINE FEW (NEGATIVE); EPITHELIAL CELLS,URINE OCCASIONAL (NONE-FEW); RBC,URINE 0-1 (0-2/HPF); WBC,URINE 0-3 (0-5/HPF)
[2022-07-24 22:18] LABS: A/G RATIO 1.3 (0.9-1.6); ALBUMIN 3.8 g/dL (3.4-5.0); BILIRUBIN TOTAL 0.3 mg/dL (0.2-1.0); CALCIUM 8.7 mg/dL (8.5-10.1); CARBON DIOXIDE,CO2 30.5 mmol/L (21.0-32.0); CREATININE 0.9 mg/dL (0.6-1.0); EST CRCL DRUG DOSING (CG) 41.18 mL/min; POTASSIUM,K 4.1 mmol/L (3.5-5.1); PROTEIN TOTAL,TP 6.7 g/dL (6.4-8.2)
== END 2022-07-24 23:00 | disposition home or self-care (01) ==
LOC: MW.ED 21:18
DX: R14.0 Abdominal distension (gaseous) (principal); J44.9 Chronic obstructive pulmonary disease, unspecified; Z91.018 Allergy to other foods; Z88.0 Allergy status to penicillin
CPT/HCPCS: 36415; 80053; 81001; 83690; 85025; 96374; 96375; 99284; J1940; J2270; J2405

== ENCOUNTER 2022-10-24 09:08 | Day surgery (SDC) | payer MEDICARE, BC ==
[~2022-10-24 09:08] MED LIST changes: +propofoL 50 ML ONE
[2022-10-24] MEDS ORDERED: ePHEDrine 50 MG/ML SDV ONE (11:45)
[2022-10-24] MEDS ORDERED: Lactated Ringers 1,000 ML IV SCH (12:00)
== END 2022-10-24 12:45 | disposition home or self-care (01) ==
LOC: MW.SDS 09:08
PROVIDERS: ATTEND Surgery
DX: K29.00 Acute gastritis without bleeding (principal); K57.30 Diverticulosis of large intestine without perforation or abscess without bleeding; K31.89 Other diseases of stomach and duodenum; K29.50 Unspecified chronic gastritis without bleeding; Z86.010 Personal history of colon polyps; Z88.1 Allergy status to other antibiotic agents; Z88.5 Allergy status to narcotic agent; Z88.8 Allergy status to other drugs, medicaments and biological substances
CPT/HCPCS: 43239; 45378; J2704; J7120; 00813; 99100; J3490

== ENCOUNTER 2022-10-28 08:19 | Emergency (ER) | payer MEDICARE, BC ==
[2022-10-28] MEDS ORDERED: Albuterol/Ipratropium 3.0-0.5 MG/3 ML Neb Soln NEB ONE (09:53)
[2022-10-28] MEDS ORDERED: LORazepam 2 MG/ML SDV IVPUSH ONE (09:54)
[2022-10-28 10:07] LABS: BASOPHILS PERCENT AUTO 0.3 % (0.0-1.5); EOSINOPHILS ABSOLUTE AUTO 0.5 K/uL (0.0-0.7); EOSINOPHILS PERCENT AUTO 6.6 % (0.0-7.0); HEMATOCRIT 37.3 % (36.0-46.0); HEMOGLOBIN 12.5 g/dL (12.0-16.0); LYMPHOCYTES ABSOLUTE AUTO 2.9 K/uL (0.6-2.4); LYMPHOCYTES PERCENT AUTO 35.9 % (16.0-40.0); MEAN CORPUSCULAR HEMOGLOBIN 30.2 pg (27.0-32.0); MEAN CORPUSCULAR HGB CONC 33.5 g/dL (31.0-37.0); MEAN CORPUSCULAR VOLUME 90.1 fL (80.0-98.0); MONOCYTES ABSOLUTE AUTO 0.3 K/uL (0.0-0.8); NEUTROPHILS ABSOLUTE AUTO 4.3 K/uL (1.4-5.7); NEUTROPHILS PERCENT AUTO 53.2 % (48.0-80.0); NRBC ABSOLUTE 0 K/uL; PLATELET COUNT,PLT 158 K/uL (150-400); RED BLOOD CELL COUNT 4.14 M/uL (4.30-5.90); WHITE BLOOD CELL COUNT,WBC 7.99 K/uL (4.0-11.0)
[2022-10-28 10:12] LABS: INR 1.07 (0.86-1.11)
[2022-10-28 10:23] LABS: A/G RATIO 1.4 (0.9-1.6); ALBUMIN 3.8 g/dL (3.4-5.0); BILIRUBIN TOTAL 0.4 mg/dL (0.2-1.0); CALCIUM 8.7 mg/dL (8.5-10.1); CARBON DIOXIDE,CO2 32.6 mmol/L (21.0-32.0); CREATININE 0.8 mg/dL (0.6-1.0); EST CRCL DRUG DOSING (CG) 46.33 mL/min; MAGNESIUM 2.1 mg/dL (1.8-2.4); POTASSIUM,K 4.4 mmol/L (3.5-5.1); PROTEIN TOTAL,TP 6.6 g/dL (6.4-8.2)
[2022-10-28] MEDS ORDERED: Albuterol 0.083% 2.5 MG/3 ML Neb Soln NEB ONE (10:37)
[2022-10-28] MEDS ORDERED: Doxycycline 100 MG Cap PO ONE (12:05)
== END 2022-10-28 12:40 | disposition home or self-care (01) ==
LOC: MW.ED 08:19
DX: R06.00 Dyspnea, unspecified (principal); J44.9 Chronic obstructive pulmonary disease, unspecified; Z91.018 Allergy to other foods; Z88.8 Allergy status to other drugs, medicaments and biological substances; Z88.5 Allergy status to narcotic agent; Z88.1 Allergy status to other antibiotic agents; Z79.51 Long term (current) use of inhaled steroids; Z79.899 Other long term (current) drug therapy
CPT/HCPCS: 36415; 71045; 80053; 83735; 83880; 84484; 85025; 85610; 86850; 86900; 86901; 96374; 99285; A9270; J2060; 99284; J7620-GY

== ENCOUNTER 2022-10-30 12:52 | Inpatient (IN) | payer MEDICARE, BC ==
[2022-10-30] MEDS ORDERED: Sodium Chloride 0.9% 2.5 ML Syringe FLUSH PRN ×2 (13:01→19:18)
[2022-10-30] MEDS ORDERED: Sodium Chloride 0.9% 10 ML Syringe FLUSH PRN ×2 (13:01→19:18)
[2022-10-30] MEDS ORDERED: Albuterol/Ipratropium 3.0-0.5 MG/3 ML Neb Soln NEB STA (13:02)
[2022-10-30 13:14] LABS: BASOPHILS PERCENT AUTO 0.2 % (0.0-1.5); EOSINOPHILS ABSOLUTE AUTO 0.8 K/uL (0.0-0.7); EOSINOPHILS PERCENT AUTO 10.1 % (0.0-7.0); HEMATOCRIT 40.5 % (36.0-46.0); HEMOGLOBIN 13.3 g/dL (12.0-16.0); LYMPHOCYTES ABSOLUTE AUTO 3.6 K/uL (0.6-2.4); LYMPHOCYTES PERCENT AUTO 44.8 % (16.0-40.0); MEAN CORPUSCULAR HEMOGLOBIN 29.8 pg (27.0-32.0); MEAN CORPUSCULAR HGB CONC 32.8 g/dL (31.0-37.0); MEAN CORPUSCULAR VOLUME 90.6 fL (80.0-98.0); MONOCYTES ABSOLUTE AUTO 0.4 K/uL (0.0-0.8); MONOCYTES PERCENT AUTO 4.6 % (0.0-15.0); NEUTROPHILS ABSOLUTE AUTO 3.3 K/uL (1.4-5.7); NEUTROPHILS PERCENT AUTO 40.3 % (48.0-80.0); NRBC ABSOLUTE 0 K/uL; PLATELET COUNT,PLT 183 K/uL (150-400); RED BLOOD CELL COUNT 4.47 M/uL (4.30-5.90); WHITE BLOOD CELL COUNT,WBC 8.12 K/uL (4.0-11.0)
[2022-10-30] MEDS ORDERED: LORazepam 2 MG/ML SDV IVPUSH STA ×2 (13:24→17:25)
[2022-10-30 13:41] LABS: A/G RATIO 1.3 (0.9-1.6); ALBUMIN 4.1 g/dL (3.4-5.0); BILIRUBIN TOTAL 0.6 mg/dL (0.2-1.0); CALCIUM 8.8 mg/dL (8.5-10.1); CARBON DIOXIDE,CO2 29.2 mmol/L (21.0-32.0); CREATININE 0.8 mg/dL (0.6-1.0); EST CRCL DRUG DOSING (CG) 46.19 mL/min; POTASSIUM,K 4.2 mmol/L (3.5-5.1); PROTEIN TOTAL,TP 7.2 g/dL (6.4-8.2)
[2022-10-30] MEDS ORDERED: Iopamidol 755 MG/ML 500 ML Multipack Bottle IVPUSH STA (14:37)
[2022-10-30 14:46] LABS: INR 1.1 (0.86-1.11)
[2022-10-30] MEDS ORDERED: Aspirin 81 MG Tab.Chew PO STA (17:30)
[2022-10-30] MEDS ORDERED: methylPREDNISolone Sodium Succinate 125 MG/2 ML SDV IVPUSH STA (18:09)
[2022-10-30] MEDS ORDERED: Sodium Chloride 0.9% 20 ML SDV IV PRN (19:18)
[2022-10-30] MEDS ORDERED: Polyethylene Glycol 3350 Powder 17 GM Packet PO PRN (19:18)
[2022-10-30] MEDS ORDERED: Acetaminophen 325 MG Tab PO PRN (19:18)
[2022-10-30] MEDS ORDERED: Ondansetron 4 MG/2 ML SDV IVPUSH PRN (19:18)
[2022-10-30] MEDS ORDERED: Albuterol/Ipratropium 3.0-0.5 MG/3 ML Neb Soln NEB PRN (19:22)
[2022-10-30] MEDS ORDERED: LORazepam 0.5 MG Tab PO PRN (19:33)
[2022-10-30] MEDS ORDERED: Azithromycin 500 MG in Sodium Chloride 0.9% 250 ML IV SCH ×2 (19:45→21:00)
[2022-10-30] MEDS: Pantoprazole 40 MG in Sodium Chloride 0.9% 10 ML IVPUSH SCH (21:16)
[2022-10-30] MEDS: cefTRIAXone 2 GM in Sodium Chloride 0.9% 50 ML IV SCH (21:16)
[2022-10-30] MEDS: oxyCODONE 5 MG Tab PO PRN (22:10)
[2022-10-30] MEDS: Mirtazapine 15 MG Tab PO PRN (22:10)
[2022-10-30] MEDS: Albuterol/Ipratropium 3.0-0.5 MG/3 ML Neb Soln NEB SCH (23:52)
[2022-10-31] MEDS: Albuterol/Ipratropium 3.0-0.5 MG/3 ML Neb Soln NEB SCH ×3 (05:29→17:24)
[2022-10-31 06:06] LABS: BASOPHILS PERCENT AUTO 0.2 % (0.0-1.5); HEMATOCRIT 36.4 % (36.0-46.0); HEMOGLOBIN 11.9 g/dL (12.0-16.0); LYMPHOCYTES ABSOLUTE AUTO 2.4 K/uL (0.6-2.4); LYMPHOCYTES PERCENT AUTO 59.2 % (16.0-40.0); MEAN CORPUSCULAR HEMOGLOBIN 29.7 pg (27.0-32.0); MEAN CORPUSCULAR HGB CONC 32.7 g/dL (31.0-37.0); MEAN CORPUSCULAR VOLUME 90.8 fL (80.0-98.0); MONOCYTES PERCENT AUTO 0.7 % (0.0-15.0); NEUTROPHILS ABSOLUTE AUTO 1.6 K/uL (1.4-5.7); NEUTROPHILS PERCENT AUTO 39.9 % (48.0-80.0); NRBC ABSOLUTE 0 K/uL; PLATELET COUNT,PLT 158 K/uL (150-400); RED BLOOD CELL COUNT 4.01 M/uL (4.30-5.90); WHITE BLOOD CELL COUNT,WBC 4.07 K/uL (4.0-11.0)
[2022-10-31 06:19] LABS: CALCIUM 8.5 mg/dL (8.5-10.1); CREATININE 0.7 mg/dL (0.6-1.0); EST CRCL DRUG DOSING (CG) 54.05 mL/min; POTASSIUM,K 4.4 mmol/L (3.5-5.1)
[2022-10-31] MEDS: methylPREDNISolone Sodium Succinate 40 MG/1 ML SDV IVPUSH SCH ×2 (08:04→21:05)
[2022-10-31] MEDS: oxyCODONE 5 MG Tab PO PRN ×3 (09:40→22:10)
[2022-10-31] MEDS: Bisacodyl 5 MG Tab PO SCH (10:52)
[2022-10-31] MEDS ORDERED: Bisacodyl 5 MG Tab PO SCH (11:00)
[2022-10-31] MEDS: LORazepam 0.5 MG Tab PO PRN ×2 (13:57→18:58)
[2022-10-31] MEDS: Pantoprazole 40 MG in Sodium Chloride 0.9% 10 ML IVPUSH SCH (18:58)
[2022-10-31] MEDS: cefTRIAXone 2 GM in Sodium Chloride 0.9% 50 ML IV SCH (20:02)
[2022-10-31] MEDS: Mirtazapine 15 MG Tab PO PRN (21:04)
[2022-11-01] MEDS: Albuterol/Ipratropium 3.0-0.5 MG/3 ML Neb Soln NEB SCH ×5 (00:02→14:39)
[2022-11-01 05:56] LABS: HEMATOCRIT 35.2 % (36.0-46.0); HEMOGLOBIN 11.5 g/dL (12.0-16.0); LYMPHOCYTES ABSOLUTE AUTO 2.8 K/uL (0.6-2.4); LYMPHOCYTES PERCENT AUTO 41.7 % (16.0-40.0); MEAN CORPUSCULAR HEMOGLOBIN 29.7 pg (27.0-32.0); MEAN CORPUSCULAR HGB CONC 32.7 g/dL (31.0-37.0); MONOCYTES ABSOLUTE AUTO 0.2 K/uL (0.0-0.8); MONOCYTES PERCENT AUTO 2.4 % (0.0-15.0); NEUTROPHILS ABSOLUTE AUTO 3.7 K/uL (1.4-5.7); NEUTROPHILS PERCENT AUTO 55.9 % (48.0-80.0); NRBC ABSOLUTE 0 K/uL; PLATELET COUNT,PLT 163 K/uL (150-400); RED BLOOD CELL COUNT 3.87 M/uL (4.30-5.90); WHITE BLOOD CELL COUNT,WBC 6.67 K/uL (4.0-11.0)
[2022-11-01 06:21] LABS: CALCIUM 8.9 mg/dL (8.5-10.1); CARBON DIOXIDE,CO2 28.9 mmol/L (21.0-32.0); CREATININE 0.9 mg/dL (0.6-1.0); EST CRCL DRUG DOSING (CG) 43.02 mL/min; MAGNESIUM 2.1 mg/dL (1.8-2.4); POTASSIUM,K 4.3 mmol/L (3.5-5.1)
[2022-11-01] MEDS: LORazepam 0.5 MG Tab PO PRN ×2 (06:35→12:54)
[2022-11-01] MEDS: oxyCODONE 5 MG Tab PO PRN ×2 (08:21→14:30)
[2022-11-01] MEDS: methylPREDNISolone Sodium Succinate 40 MG/1 ML SDV IVPUSH SCH (08:23)
[2022-11-01] MEDS: Bisacodyl 5 MG Tab PO SCH (08:54)
[2022-11-01] MEDS ORDERED: Enoxaparin 40 MG/0.4 ML Syringe SUBCUT SCH (09:00)
[2022-11-01] MEDS ORDERED: Furosemide 20 MG Tab PO SCH (12:00)
[2022-11-02] MEDS ORDERED: OLODATEROL HCL INH SCH (09:00)
[2022-11-02] MEDS ORDERED: TIOTROPIUM BR INH SCH (09:00)
== END 2022-11-01 17:00 | disposition home or self-care (01) | DRG 191 ==
LOC: MW.ED 12:52 → MW.MS 18:10
PROVIDERS: ADMIT Family Medicine; ATTEND Family Medicine
DX: J43.2 Centrilobular emphysema (principal); I24.9 Acute ischemic heart disease, unspecified; J44.1 Chronic obstructive pulmonary disease with (acute) exacerbation; J90 Pleural effusion, not elsewhere classified; J98.11 Atelectasis; J81.1 Chronic pulmonary edema; J96.11 Chronic respiratory failure with hypoxia; F41.9 Anxiety disorder, unspecified; M19.90 Unspecified osteoarthritis, unspecified site; F32.A Depression, unspecified; I25.9 Chronic ischemic heart disease, unspecified; Z85.6 Personal history of leukemia; Z88.5 Allergy status to narcotic agent; Z88.8 Allergy status to other drugs, medicaments and biological substances; Z91.048 Other nonmedicinal substance allergy status; Z20.822 Contact with and (suspected) exposure to COVID-19; Z87.81 Personal history of (healed) traumatic fracture; Z90.49 Acquired absence of other specified parts of digestive tract; Z98.890 Other specified postprocedural states; F17.210 Nicotine dependence, cigarettes, uncomplicated; Z99.81 Dependence on supplemental oxygen; Z79.899 Other long term (current) drug therapy
CPT/HCPCS: 36415; 71045; 71275; 80053; 83880; 84145; 84484 ×3; 85025; 85610; 93005 ×2; 96374; 99285; J2060 ×2; J3490; Q9967; U0002; 80048; 83735; 93010; 93306; 94640; 97161-GP; A9270-GY; C9113; J0456; J0696; J1650; J2920; J2930; J7050; J7620-GY

== ENCOUNTER 2022-11-16 09:35 | Emergency (ER) | payer MEDICARE, BC ==
[2022-11-16] MEDS ORDERED: Albuterol/Ipratropium 3.0-0.5 MG/3 ML Neb Soln NEB ONE (10:17)
== END 2022-11-16 11:00 | disposition home or self-care (01) ==
LOC: MW.ED 09:35
DX: Z76.0 Encounter for issue of repeat prescription (principal); J44.9 Chronic obstructive pulmonary disease, unspecified; K21.9 Gastro-esophageal reflux disease without esophagitis; Z88.1 Allergy status to other antibiotic agents; Z88.5 Allergy status to narcotic agent; Z91.018 Allergy to other foods
CPT/HCPCS: 71045; 71045-26; 99282; 99283; J7620-GY

== ENCOUNTER 2022-11-20 09:10 | Emergency (ER) | payer MEDICARE, BC ==
[2022-11-20] MEDS ORDERED: Sodium Chloride 0.9% 2.5 ML Syringe FLUSH PRN (10:27)
[2022-11-20] MEDS ORDERED: Sodium Chloride 0.9% 10 ML Syringe FLUSH PRN (10:27)
[2022-11-20] MEDS ORDERED: Albuterol/Ipratropium 3.0-0.5 MG/3 ML Neb Soln NEB STA (10:28)
[2022-11-20] MEDS ORDERED: methylPREDNISolone Sodium Succinate 125 MG/2 ML SDV IVPUSH STA (10:28)
[2022-11-20] MEDS ORDERED: LORazepam 2 MG/ML SDV IVPUSH STA (10:29)
[2022-11-20 10:45] LABS: BASOPHILS PERCENT AUTO 0.2 % (0.0-1.5); EOSINOPHILS ABSOLUTE AUTO 0.6 K/uL (0.0-0.7); EOSINOPHILS PERCENT AUTO 9.6 % (0.0-7.0); LYMPHOCYTES ABSOLUTE AUTO 2.8 K/uL (0.6-2.4); MEAN CORPUSCULAR HEMOGLOBIN 30.2 pg (27.0-32.0); MEAN CORPUSCULAR HGB CONC 33.3 g/dL (31.0-37.0); MEAN CORPUSCULAR VOLUME 90.5 fL (80.0-98.0); MONOCYTES ABSOLUTE AUTO 0.3 K/uL (0.0-0.8); MONOCYTES PERCENT AUTO 4.3 % (0.0-15.0); NEUTROPHILS ABSOLUTE AUTO 2.9 K/uL (1.4-5.7); NEUTROPHILS PERCENT AUTO 43.9 % (48.0-80.0); NRBC ABSOLUTE 0 K/uL; PLATELET COUNT,PLT 165 K/uL (150-400); RED BLOOD CELL COUNT 4.31 M/uL (4.30-5.90); WHITE BLOOD CELL COUNT,WBC 6.54 K/uL (4.0-11.0)
[2022-11-20 11:27] LABS: A/G RATIO 1.4 (0.9-1.6); ALBUMIN 4.2 g/dL (3.4-5.0); BILIRUBIN TOTAL 0.5 mg/dL (0.2-1.0); CALCIUM 8.6 mg/dL (8.5-10.1); CREATININE 0.8 mg/dL (0.6-1.0); EST CRCL DRUG DOSING (CG) 46.33 mL/min; POTASSIUM,K 4.3 mmol/L (3.5-5.1); PROTEIN TOTAL,TP 7.3 g/dL (6.4-8.2)
== END 2022-11-20 13:45 | disposition home or self-care (01) ==
LOC: MW.ED 09:10
DX: J44.1 Chronic obstructive pulmonary disease with (acute) exacerbation (principal); K21.9 Gastro-esophageal reflux disease without esophagitis; Z88.1 Allergy status to other antibiotic agents; Z88.5 Allergy status to narcotic agent; Z79.899 Other long term (current) drug therapy; Z91.018 Allergy to other foods
CPT/HCPCS: 36415; 71046; 80053; 83690; 83735; 85025; 93005; 96374; 96375; 99285; J2060; J2930; J3490; 93010; 99284; J7620-GY

== ENCOUNTER 2023-05-03 10:16 | Emergency (ER) | payer MEDICARE, BC ==
[2023-05-03] MEDS: Albuterol 0.083% 2.5 MG/3 ML Neb Soln NEB SCH (10:47)
[2023-05-03] MEDS: Albuterol/Ipratropium 3.0-0.5 MG/3 ML Neb Soln NEB ONE (10:47)
[2023-05-03] MEDS: methylPREDNISolone Sodium Succinate 125 MG/2 ML SDV IVPUSH ONE (10:55)
[2023-05-03] MEDS: Sodium Chloride 0.9% 2.5 ML Syringe FLUSH PRN (10:55)
[2023-05-03] MEDS: Sodium Chloride 0.9% 10 ML Syringe FLUSH PRN (10:55)
[2023-05-03] MEDS: Magnesium Sulfate/Water 2 GM in Premix Bag 1 BAG IV ONE (10:56)
[2023-05-03 10:58] LABS: BASE EXCESS VENOUS 4.3 (-2.0-3.0); PH,VENOUS 7.39 (7.31-7.41)
[2023-05-03 11:16] LABS: INR 1.06 (0.86-1.11); PTT,PARTIAL THROMBOPLSTIN TIME 31.6 SEC (23.9-30.7)
[2023-05-03 11:28] LABS: HEMATOCRIT 37.5 % (37.0-47.0); HEMOGLOBIN 12.4 g/dL (12.0-16.0); MEAN CORPUSCULAR HEMOGLOBIN 30.4 pg (28.0-32.0); MEAN CORPUSCULAR HGB CONC 33.1 g/dL (32.0-36.0); MEAN CORPUSCULAR VOLUME 91.9 fL (83.0-99.0); MEAN PLATELET VOLUME 8.7 fL (9.4-12.3); PLATELET COUNT,PLT 177 K/uL (150-400); RED BLOOD CELL COUNT 4.08 M/uL (4.10-5.30); WHITE BLOOD CELL COUNT,WBC 15.81 K/uL (3.9-11.3)
[2023-05-03 11:38] LABS: A/G RATIO 1.5 (0.9-1.6); ALBUMIN 3.9 g/dL (3.4-5.0); BILIRUBIN TOTAL 0.5 mg/dL (0.2-1.0); CALCIUM 8.3 mg/dL (8.5-10.1); CARBON DIOXIDE,CO2 28.9 mmol/L (21.0-32.0); CREATININE 0.7 mg/dL (0.6-1.0); EST CRCL DRUG DOSING (CG) 52.78 mL/min; POTASSIUM,K 4.7 mmol/L (3.5-5.1); PROTEIN TOTAL,TP 6.5 g/dL (6.4-8.2)
[2023-05-03 11:41] LABS: CORONAVIRUS COVID-19 NAA NEGATIVE (NEGATIVE); INFLUENZA A NAA NEGATIVE (NEGATIVE); INFLUENZA B NAA NEGATIVE (NEGATIVE); RESPIRATORY SYNCYTIAL VIR NAA NEGATIVE (NEGATIVE)
[2023-05-03 12:01] LABS: BASOPHILS ABSOLUTE MAN 0.16 K/uL (0.00-0.20); BASOPHILS PERCENT MAN 1 % (0-1); EOSINOPHILS ABSOLUTE MAN 0.47 K/uL (0.00-0.45); EOSINOPHILS PERCENT MAN 3 % (0-6); LYMPHOCYTES ABSOLUTE MAN 9.17 K/uL (1.00-4.80); LYMPHOCYTES PERCENT MAN 58 % (24-44); MONOCYTES ABSOLUTE MAN 0.32 K/uL (0.00-0.80); MONOCYTES PERCENT MAN 2 % (0-8); SEG NEUTROPHILS ABSOLUTE MAN 5.69 K/uL (1.80-7.70); SEG NEUTROPHILS PERCENT MAN 36 % (41-71)
[2023-05-03 12:02] LABS: SMUDGE CELLS MANY
[2023-05-03] MEDS: Azithromycin 500 MG in Sodium Chloride 0.9% 250 ML IV ONE (12:35)
[2023-05-03 13:30] LABS: LACTIC ACID 0.8 mmol/L (0.4-2.0)
[2023-05-03] MEDS: Famotidine 20 MG/2 ML SDV IVPUSH ONE (13:43)
[2023-05-03] MEDS: predniSONE 20 MG Tab PO ONE (14:32)
== END 2023-05-03 14:38 | disposition home or self-care (01) ==
LOC: MW.ED 10:16
DX: J44.1 Chronic obstructive pulmonary disease with (acute) exacerbation (principal); J96.11 Chronic respiratory failure with hypoxia; Z91.018 Allergy to other foods; Z88.5 Allergy status to narcotic agent; Z88.1 Allergy status to other antibiotic agents; Z79.899 Other long term (current) drug therapy
CPT/HCPCS: 0241U; 36415; 71045; 80053; 82803; 83605; 83880; 84484; 85025; 85610; 85730; 87040; 93005; 94640; 96365; 96367; 96375; 99285; A9270; J0456; J2930; J3475; J3490; J7050; 93010; 99284; J7620-GY

== ENCOUNTER 2023-08-15 18:38 | Emergency (ER) | payer MEDICARE, BC ==
[2023-08-15] MEDS: oxyCODONE 5 MG Tab PO ONE ×2 (19:20→21:28)
[2023-08-15] MEDS: LORazepam 0.5 MG Tab PO ONE (20:42)
[2023-08-15] MEDS ORDERED: Sodium Chloride 0.9% 10 ML Syringe FLUSH PRN (21:36)
[2023-08-15] MEDS ORDERED: Sodium Chloride 0.9% 2.5 ML Syringe FLUSH PRN (21:36)
[2023-08-15 22:07] LABS: HEMATOCRIT 35.3 % (37.0-47.0); HEMOGLOBIN 11.7 g/dL (12.0-16.0); MEAN CORPUSCULAR HGB CONC 33.1 g/dL (32.0-36.0); MEAN CORPUSCULAR VOLUME 90.5 fL (83.0-99.0); MEAN PLATELET VOLUME 8.8 fL (9.4-12.3); PLATELET COUNT,PLT 222 K/uL (150-400)
[2023-08-15 22:12] LABS: WHITE BLOOD CELL COUNT,WBC 32.99 K/uL (3.9-11.3)
[2023-08-15] MEDS ORDERED: Naloxone 0.4 MG/ML SDV IVPUSH PRN (22:14)
[2023-08-15 22:20] LABS: INR 1.03 (0.86-1.11)
[2023-08-15] MEDS: Morphine 4 MG/ML Syringe IVPUSH ONE (22:28)
[2023-08-15 22:35] LABS: A/G RATIO 1.3 (0.9-1.6); ALBUMIN 3.9 g/dL (3.4-5.0); BILIRUBIN TOTAL 0.5 mg/dL (0.2-1.0); CALCIUM 8.6 mg/dL (8.5-10.1); CARBON DIOXIDE,CO2 27.2 mmol/L (21.0-32.0); CREATININE 0.9 mg/dL (0.6-1.0); EST CRCL DRUG DOSING (CG) 38.35 mL/min; POTASSIUM,K 4.4 mmol/L (3.5-5.1); PROTEIN TOTAL,TP 6.8 g/dL (6.4-8.2)
[2023-08-15 23:10] LABS: BAND ABSOLUTE MAN 20.78; EOSINOPHILS ABSOLUTE MAN 0.66 K/uL (0.00-0.45); EOSINOPHILS PERCENT MAN 2 % (0-6); LYMPHOCYTES ABSOLUTE MAN 20.78 K/uL (1.00-4.80); LYMPHOCYTES PERCENT MAN 63 % (24-44); MONOCYTES ABSOLUTE MAN 1.32 K/uL (0.00-0.80); MONOCYTES PERCENT MAN 4 % (0-8); SEG NEUTROPHILS ABSOLUTE MAN 10.23 K/uL (1.80-7.70); SEG NEUTROPHILS PERCENT MAN 31 % (41-71)
[2023-08-15 23:13] LABS: SMUDGE CELLS MODERATE
[2023-08-16] MEDS: Morphine 4 MG/ML Syringe IVPUSH ONE ×2 (00:14→02:44)
[2023-08-16] MEDS: Cyclobenzaprine 5 MG Tab PO ONE (01:05)
[2023-08-16] MEDS: Albuterol 0.083% 2.5 MG/3 ML Neb Soln NEB ONE (02:50)
== END 2023-08-16 07:55 ==
LOC: MW.ED 18:38
DX: S72.011A Unspecified intracapsular fracture of right femur, initial encounter for closed fracture (principal); S52.501A Unspecified fracture of the lower end of right radius, initial encounter for closed fracture; J44.9 Chronic obstructive pulmonary disease, unspecified; Z91.018 Allergy to other foods; Z88.0 Allergy status to penicillin; Z88.5 Allergy status to narcotic agent; Z88.1 Allergy status to other antibiotic agents; Z79.899 Other long term (current) drug therapy; Z79.51 Long term (current) use of inhaled steroids; Z75.8 Other problems related to medical facilities and other health care; W18.39XA Other fall on same level, initial encounter
CPT/HCPCS: 36415; 70450; 73100; 73501; 73562; 73700; 80053; 85025; 85610; 86850; 86900; 86901; 96374; 96376; 99285; A9270; J2270; J7620-GY

== ENCOUNTER 2024-05-18 10:07 | Emergency (ER) | payer MEDICARE, BC ==
[2024-05-18] MEDS ORDERED: Sodium Chloride 0.9% 2.5 ML Syringe FLUSH PRN (11:57)
[2024-05-18] MEDS ORDERED: Sodium Chloride 0.9% 10 ML Syringe FLUSH PRN (11:57)
[2024-05-18] MEDS: oxyCODONE 5 MG Tab PO STA (12:33)
[2024-05-18] MEDS: Albuterol 0.083% 2.5 MG/3 ML Neb Soln NEB STA (12:33)
[2024-05-18] MEDS: methylPREDNISolone Sodium Succinate 125 MG/2 ML SDV IVPUSH STA (12:33)
[2024-05-18] MEDS: Albuterol/Ipratropium 3.0-0.5 MG/3 ML Neb Soln NEB STA (12:41)
[2024-05-18 12:43] LABS: HEMATOCRIT 27.7 % (37.0-47.0); HEMOGLOBIN 8.4 g/dL (12.0-16.0); MEAN CORPUSCULAR HEMOGLOBIN 29.6 pg (28.0-32.0); MEAN CORPUSCULAR HGB CONC 30.3 g/dL (32.0-36.0); MEAN CORPUSCULAR VOLUME 97.5 fL (83.0-99.0); PLATELET COUNT,PLT 175 K/uL (150-400); RED BLOOD CELL COUNT 2.84 M/uL (4.10-5.30)
[2024-05-18 12:46] LABS: PH,VENOUS 7.43 (7.31-7.41)
[2024-05-18 12:47] LABS: WHITE BLOOD CELL COUNT,WBC 95.93 K/uL (3.9-11.3)
[2024-05-18 13:18] LABS: A/G RATIO 1.5 (0.9-1.6); ALANINE AMINOTRANSFERASE,ALT 15 IU/L (14-63); ALBUMIN 3.9 g/dL (3.4-5.0); ALKALINE PHOSPHATASE 62 U/L (46-116); ASPARTATE AMNIOTRANSFERASE,AST 18 IU/L (15-37); BILIRUBIN TOTAL 0.5 mg/dL (0.2-1.0); BLOOD UREA NITROGEN,BUN 12 mg/dL (7.0-18.0); CARBON DIOXIDE,CO2 32.3 mmol/L (21.0-32.0); CHLORIDE,CL 97 mmol/L (98-107); CREATININE 0.8 mg/dL (0.6-1.0); ESTIMATED GFR 78 mL/min (>60); GLUCOSE RANDOM 108 mg/dL (74-106); LIPASE 32 U/L (16-77); POTASSIUM,K 3.9 mmol/L (3.5-5.1); PRO B-TYPE NATRIUR PEPT,BNPPRO 241 pg/mL (0-125); PROTEIN TOTAL,TP 6.5 g/dL (6.4-8.2); SODIUM,NA 138 mmol/L (136-145)
[2024-05-18 13:23] LABS: APPEARANCE,URINE CLEAR; BILIRUBIN,URINE NEGATIVE (NEGATIVE); COLOR,URINE YELLOW; GLUCOSE,URINE NEGATIVE (NEGATIVE); KETONES,URINE NEGATIVE (NEGATIVE); LEUKOCYTE ESTERASE,URINE NEGATIVE (NEGATIVE); NITRITE,URINE NEGATIVE (NEGATIVE); OCCULT BLOOD,URINE NEGATIVE (NEGATIVE); PROTEIN,URINE NEGATIVE (NEGATIVE); UROBILINOGEN,URINE 0.2 EU/dL (<2.0)
[2024-05-18 13:24] LABS: LYMPHOCYTES ABSOLUTE MAN 85.38 K/uL (1.00-4.80); LYMPHOCYTES PERCENT MAN 89 % (24-44); MONOCYTES ABSOLUTE MAN 3.84 K/uL (0.00-0.80); MONOCYTES PERCENT MAN 4 % (0-8); SEG NEUTROPHILS ABSOLUTE MAN 6.72 K/uL (1.80-7.70); SEG NEUTROPHILS PERCENT MAN 7 % (41-71); SMUDGE CELLS MODERATE
[2024-05-18] MEDS: Iopamidol 755 MG/ML 500 ML Multipack Bottle IVPUSH STA ×2 (13:40→13:41)
== END 2024-05-18 14:59 | disposition home or self-care (01) ==
LOC: MW.ED 10:07
DX: J90 Pleural effusion, not elsewhere classified (principal); C91.10 Chronic lymphocytic leukemia of B-cell type not having achieved remission; R14.0 Abdominal distension (gaseous); J44.9 Chronic obstructive pulmonary disease, unspecified; Z75.8 Other problems related to medical facilities and other health care; Z91.018 Allergy to other foods; Z88.5 Allergy status to narcotic agent; Z88.1 Allergy status to other antibiotic agents; Z79.899 Other long term (current) drug therapy; Z79.51 Long term (current) use of inhaled steroids
CPT/HCPCS: 36415; 71046; 71260; 74177; 80053; 81003; 82803; 83690; 83735; 83880; 84484; 85025; 87428; 93005; 96374; 99285; A9270; J2919; Q9967; 93010; 99283

== ENCOUNTER 2025-01-08 12:48 | Emergency (ER) | payer MEDICARE, BC ==
[2025-01-08 13:20] LABS: BASOPHILS ABSOLUTE AUTO 0.02 K/uL (0.00-0.20); BASOPHILS PERCENT AUTO 0.1 % (0.0-1.0); EOSINOPHILS ABSOLUTE AUTO 0.01 K/uL (0.00-0.45); EOSINOPHILS PERCENT AUTO 0.1 % (0.0-6.0); IMMATURE GRAN ABSOLUTE AUTO 0.08 K/uL (0.00-0.05); IMMATURE GRAN PERCENT AUTO 0.5 % (0.0-0.4); LYMPHOCYTES ABSOLUTE AUTO 1.46 K/uL (1.00-4.80); LYMPHOCYTES PERCENT AUTO 8.5 % (24.0-44.0); MEAN PLATELET VOLUME 8.9 fL (9.4-12.3); MONOCYTES ABSOLUTE AUTO 0.62 K/uL (0.00-0.80); MONOCYTES PERCENT AUTO 3.6 % (0.0-8.0); NEUTROPHILS ABSOLUTE AUTO 15.01 K/uL (1.80-7.70); NEUTROPHILS PERCENT AUTO 87.2 % (41.0-71.0); NRBC ABSOLUTE 0.00 K/uL (0.00-0.02); NRBC PERCENT 0.0 /100WBC (0.0-0.2); PLATELET COUNT,PLT 207 K/uL (150-400); RED BLOOD CELL COUNT 4.12 M/uL (4.10-5.30); WHITE BLOOD CELL COUNT,WBC 17.20 K/uL (3.9-11.3)
[2025-01-08 13:50] LABS: LACTIC ACID 1.6 mmol/L (0.4-2.0)
[2025-01-08 13:54] LABS: A/G RATIO 1.2 (0.9-1.6); ALANINE AMINOTRANSFERASE,ALT 27.0 IU/L (14-63); ASPARTATE AMNIOTRANSFERASE,AST 27.0 IU/L (15-37); BILIRUBIN TOTAL 0.5 mg/dL (0.2-1.0); BLOOD UREA NITROGEN,BUN 12.0 mg/dL (7.0-18.0); CARBON DIOXIDE,CO2 36.3 mmol/L (21.0-32.0); CHLORIDE,CL 98.0 mmol/L (98-107); CREATININE 0.9 mg/dL (0.6-1.0); EST CRCL DRUG DOSING (CG) 35.15 mL/min; GLUCOSE RANDOM 96.0 mg/dL (74-106); POTASSIUM,K 4.0 mmol/L (3.5-5.1); PRO B-TYPE NATRIUR PEPT,BNPPRO 395.0 pg/mL (0-125); PROTEIN TOTAL,TP 7.7 g/dL (6.4-8.2); SODIUM,NA 140.0 mmol/L (136-145)
[2025-01-08 13:56] LABS: ESTIMATED GFR 68.0 mL/min (>60)
[2025-01-08 14:14] LABS: APPEARANCE,URINE CLEAR; GLUCOSE,URINE NEGATIVE (NEGATIVE); OCCULT BLOOD,URINE NEGATIVE (NEGATIVE)
[2025-01-08 14:19] LABS: CORONAVIRUS COVID-19 NAA NEGATIVE (NEGATIVE); INFLUENZA A NAA NEGATIVE (NEGATIVE); INFLUENZA B NAA NEGATIVE (NEGATIVE); RESPIRATORY SYNCYTIAL VIR NAA NEGATIVE (NEGATIVE)
[2025-01-08 14:45] LABS: PCO2 ARTERIAL 49 mmHG (35-45)
[2025-01-08 14:46] LABS: BASE EXCESS ARTERIAL 10.6 (-2.0-3.0); BICARBONATE,ARTERIAL 36 mEq/L (21-28); PO2 ARTERIAL 90 mmHG (83-108)
[2025-01-08] MEDS: Iopamidol 755 Mg/ML 100 ML Bottle IVPUSH ONE (14:51)
[2025-01-08] MEDS: cefTRIAXone 1 GM in Water For Injection, Sterile 10 ML IVPUSH ONE (14:54)
== END 2025-01-08 16:38 | disposition home or self-care (01) ==
LOC: MW.ED 12:48
DX: K57.32 Diverticulitis of large intestine without perforation or abscess without bleeding (principal); J44.1 Chronic obstructive pulmonary disease with (acute) exacerbation; F17.200 Nicotine dependence, unspecified, uncomplicated; Z91.0110 Allergy to milk products, unspecified; Z88.1 Allergy status to other antibiotic agents; Z79.899 Other long term (current) drug therapy
CPT/HCPCS: 36415; 36600; 71045; 71045-26; 71260; 71260-26; 74177; 74177-26; 80053; 81003; 82803; 83605; 83735; 83880; 84484; 85025; 87040; 87637; 93005; 93010; 94640; 96361; 96374; 99284; 99285-25; A9270-GY; J0696; J7030; Q9967

== ENCOUNTER 2025-01-14 12:49 | Emergency (ER) | payer MEDICARE, BC ==
[2025-01-14] MEDS ORDERED: Sodium Chloride 0.9% 10 ML Syringe FLUSH PRN (13:21)
[2025-01-14] MEDS ORDERED: Sodium Chloride 0.9% 2.5 ML Syringe FLUSH PRN (13:21)
[2025-01-14] MEDS: Ondansetron 4 MG/2 ML SDV IVPUSH ONE (13:57)
[2025-01-14 13:59] LABS: BASOPHILS ABSOLUTE AUTO 0.02 K/uL (0.00-0.20); BASOPHILS PERCENT AUTO 0.3 % (0.0-1.0); EOSINOPHILS ABSOLUTE AUTO 0.05 K/uL (0.00-0.45); EOSINOPHILS PERCENT AUTO 0.7 % (0.0-6.0); IMMATURE GRAN ABSOLUTE AUTO 0.02 K/uL (0.00-0.05); IMMATURE GRAN PERCENT AUTO 0.3 % (0.0-0.4); LYMPHOCYTES ABSOLUTE AUTO 1.63 K/uL (1.00-4.80); LYMPHOCYTES PERCENT AUTO 22.4 % (24.0-44.0); MEAN PLATELET VOLUME 8.6 fL (9.4-12.3); MONOCYTES ABSOLUTE AUTO 0.36 K/uL (0.00-0.80); MONOCYTES PERCENT AUTO 5.0 % (0.0-8.0); NEUTROPHILS ABSOLUTE AUTO 5.19 K/uL (1.80-7.70); NEUTROPHILS PERCENT AUTO 71.3 % (41.0-71.0); NRBC ABSOLUTE 0.00 K/uL (0.00-0.02); NRBC PERCENT 0.0 /100WBC (0.0-0.2); PLATELET COUNT,PLT 211 K/uL (150-400); RED BLOOD CELL COUNT 3.73 M/uL (4.10-5.30); WHITE BLOOD CELL COUNT,WBC 7.27 K/uL (3.9-11.3)
[2025-01-14] MEDS: Iopamidol 755 Mg/ML 100 ML Bottle IVPUSH ONE (14:14)
[2025-01-14 14:21] LABS: A/G RATIO 1.3 (0.9-1.6); ALANINE AMINOTRANSFERASE,ALT 21.0 IU/L (14-63); ASPARTATE AMNIOTRANSFERASE,AST 21.0 IU/L (15-37); BILIRUBIN TOTAL 0.4 mg/dL (0.2-1.0); BLOOD UREA NITROGEN,BUN 14.0 mg/dL (7.0-18.0); CARBON DIOXIDE,CO2 36.8 mmol/L (21.0-32.0); CHLORIDE,CL 101.0 mmol/L (98-107); CREATININE 0.6 mg/dL (0.6-1.0); EST CRCL DRUG DOSING (CG) 58.6 mL/min; GLUCOSE RANDOM 108.0 mg/dL (74-106); POTASSIUM,K 3.9 mmol/L (3.5-5.1); PROTEIN TOTAL,TP 6.9 g/dL (6.4-8.2); SODIUM,NA 142.0 mmol/L (136-145)
[2025-01-14 14:22] LABS: ESTIMATED GFR 95.0 mL/min (>60)
== END 2025-01-14 16:43 | disposition home or self-care (01) ==
LOC: MW.ED 12:49
DX: R10.84 Generalized abdominal pain (principal); J44.9 Chronic obstructive pulmonary disease, unspecified; Z79.899 Other long term (current) drug therapy; F17.200 Nicotine dependence, unspecified, uncomplicated; Z91.0110 Allergy to milk products, unspecified; Z88.1 Allergy status to other antibiotic agents; Z75.3 Unavailability and inaccessibility of health-care facilities
CPT/HCPCS: 36415; 74177; 80053; 83690; 83735; 85025; 96361; 96374; 96375; 99284; A9270; J2270; J2405; J7030; Q9967; 99283

== ENCOUNTER 2025-01-20 10:26 | Emergency (ER) | payer MEDICARE, BC ==
[2025-01-20] MEDS ORDERED: Sodium Chloride 0.9% 10 ML Syringe FLUSH PRN (11:09)
[2025-01-20] MEDS ORDERED: Sodium Chloride 0.9% 2.5 ML Syringe FLUSH PRN (11:09)
[2025-01-20 11:43] LABS: BASOPHILS ABSOLUTE AUTO 0.01 K/uL (0.00-0.20); BASOPHILS PERCENT AUTO 0.1 % (0.0-1.0); EOSINOPHILS ABSOLUTE AUTO 0.03 K/uL (0.00-0.45); EOSINOPHILS PERCENT AUTO 0.4 % (0.0-6.0); IMMATURE GRAN ABSOLUTE AUTO 0.01 K/uL (0.00-0.05); IMMATURE GRAN PERCENT AUTO 0.1 % (0.0-0.4); LYMPHOCYTES ABSOLUTE AUTO 1.98 K/uL (1.00-4.80); LYMPHOCYTES PERCENT AUTO 27.5 % (24.0-44.0); MEAN PLATELET VOLUME 8.8 fL (9.4-12.3); MONOCYTES ABSOLUTE AUTO 0.31 K/uL (0.00-0.80); MONOCYTES PERCENT AUTO 4.3 % (0.0-8.0); NEUTROPHILS ABSOLUTE AUTO 4.85 K/uL (1.80-7.70); NEUTROPHILS PERCENT AUTO 67.6 % (41.0-71.0); NRBC ABSOLUTE 0.00 K/uL (0.00-0.02); NRBC PERCENT 0.0 /100WBC (0.0-0.2); PLATELET COUNT,PLT 200 K/uL (150-400); RED BLOOD CELL COUNT 4.03 M/uL (4.10-5.30); WHITE BLOOD CELL COUNT,WBC 7.19 K/uL (3.9-11.3)
[2025-01-20] MEDS: Iopamidol 755 MG/ML 500 ML Multipack Bottle IVPUSH STA (11:45)
[2025-01-20] MEDS ORDERED: Ketorolac 30 MG/ML SDV IVPUSH ONE (12:04)
[2025-01-20 12:07] LABS: A/G RATIO 1.3 (0.9-1.6); ALANINE AMINOTRANSFERASE,ALT 22 IU/L (14-63); ASPARTATE AMNIOTRANSFERASE,AST 31 IU/L (15-37); BILIRUBIN TOTAL 0.4 mg/dL (0.2-1.0); BLOOD UREA NITROGEN,BUN 12 mg/dL (7.0-18.0); CARBON DIOXIDE,CO2 37.8 mmol/L (21.0-32.0); CHLORIDE,CL 98 mmol/L (98-107); CREATININE 0.7 mg/dL (0.6-1.0); GLUCOSE RANDOM 87 mg/dL (74-106); POTASSIUM,K 3.8 mmol/L (3.5-5.1); PROTEIN TOTAL,TP 7.1 g/dL (6.4-8.2); SODIUM,NA 142 mmol/L (136-145)
[2025-01-20 12:09] LABS: ESTIMATED GFR 91 mL/min (>60)
[2025-01-20] MEDS: Ondansetron 4 MG/2 ML SDV IVPUSH ONE (12:23)
== END 2025-01-20 15:22 | disposition home or self-care (01) ==
LOC: MW.ED 10:26
DX: K59.00 Constipation, unspecified (principal); F11.90 Opioid use, unspecified, uncomplicated; E86.0 Dehydration; F17.200 Nicotine dependence, unspecified, uncomplicated; Z88.1 Allergy status to other antibiotic agents; Z91.0110 Allergy to milk products, unspecified; Z79.899 Other long term (current) drug therapy; C91.10 Chronic lymphocytic leukemia of B-cell type not having achieved remission; E55.9 Vitamin D deficiency, unspecified
CPT/HCPCS: 36415; 74018; 74177; 80053; 82306; 82784; 83615; 83690; 83735; 85025; 96361; 96374; 96375; 99284; J2270; J2405; J7030; Q9967; 99283

== ENCOUNTER 2025-02-14 11:12 | Emergency (ER) | payer MEDICARE, BC ==
[2025-02-14] MEDS: Acetaminophen/oxyCODONE 325-5 MG Tab PO ONE (12:40)
== END 2025-02-14 15:43 | disposition home or self-care (01) ==
LOC: MW.ED 11:12
DX: K59.00 Constipation, unspecified (principal); G89.29 Other chronic pain; J44.9 Chronic obstructive pulmonary disease, unspecified; F17.200 Nicotine dependence, unspecified, uncomplicated; Z91.0110 Allergy to milk products, unspecified; Z88.1 Allergy status to other antibiotic agents; Z79.899 Other long term (current) drug therapy; Z79.51 Long term (current) use of inhaled steroids
CPT/HCPCS: 71045; 74018; 74177; 99284; A9270; 99283